=== PATIENT | male | born 1945 | race Caucasian/White ===

== ENCOUNTER 2018-12-07 13:32 | Emergency (ER) | payer MEDICARE, OTHER ==
[~2018-12-07] VITALS: Ht 157.5 cm; Wt 56.8 kg
[~2018-12-07 13:32] MED LIST: AMLO-147 PO; ASPI-535 PO; BENA40TA54 PO; FOLI-49 PO; METO100T PO; OMEP20CA16 PO; SIMV40TA3 PO; TRAV2.5D BOTH EYES
[2018-12-07 13:39] VITALS: Ht 157.5 cm; Wt 56.8 kg
--- NOTE | 2018-12-07 14:00 | ERD ---
ER Documentation Chief Complaint Chief Complaint swelling/mass on R. leg x 1 year redness/pain x3 days HPI This is a 73-year-old male who is had a right lateral upper tib-fib mass for 2 years, the patient then developed a great deal more swelling which is the size of a cantaloupe now, there is now some reddish purple discoloration to the skin for the past week. The patient does not want it removed after many surgeons have seen this and wanted to remove it in the past he says he is here because he is getting so big is getting hard to walk ROS All systems reviewed and are negative except as per history of present illness. Medications Home Meds Reported Medications Omeprazole* (Omeprazole*) 20 Mg Capsule.dr, 20 MG PO DAILY, #30 CAP 12/07/18 Calcium Acetate* (Calcium Acetate*) 667 Mg Capsule, 667 MG PO WITH MEALS, #30 CAP 12/07/18 Levetiracetam* (Levetiracetam*) 500 Mg Tablet, 500 MG PO DAILY, TAB 12/07/18 Lamotrigine* (Lamotrigine*) 100 Mg Tablet, 100 MG PO BID, TAB 12/07/18 Metoprolol Succinate* (Toprol XL*) 100 Mg Tab.sr.24h, 100 MG PO DAILY, #30 TAB 12/07/18 Simvastatin* (Zocor*) 20 Mg Tablet, 20 MG PO QHS, #30 TAB 12/07/18 Nifedipine* (Afeditab CR*) 60 Mg Tablet.er, 60 MG PO BID, #30 TAB.SA 12/07/18 Hydralazine Hcl* (Hydralazine Hcl*) 100 Mg Tablet, 100 MG PO Q8 PRN for NEEDED, #90 TAB 12/07/18 Discontinued Reported Medications Travoprost* (Travatan Z*) 2.5 Ml Drops, 1 DROP BOTH EYES HS, EA 04/02/15 Omeprazole* (Omeprazole*) 20 Mg Capsule.dr, 20 MG PO DAILY, CAP 04/02/15 Aspirin Ec (Aspir 81) 81 Mg Tablet.dr, 81 MG PO DAILY 10/18/13 Metoprolol (Lopressor) 100 Mg Tablet, 100 MG PO DAILY 10/18/13 Amlodipine Besylate* (Amlodipine Besylate*) 10 Mg Tablet, 10 MG PO DAILY 10/18/13 Simvastatin (Simvastatin) 40 Mg Tablet, 40 MG PO DAILY 10/18/13 Folic Acid* (Folic Acid*) 1 Mg Tablet, 1 MG PO DAILY 10/18/13 Benazepril Hcl* (Lotensin*) 40 Mg Tablet, 40 MG PO DAILY 10/18/13 Allergies Allergies: Coded Allergies: No Known Allergy (Unverified , 12/07/18) PMhx/Soc History of Surgery: Yes (LT ARM SHUNT - 07/2013, RT ARM SHUNT- 01/2015 ,HERNIA REPAIR , EYE SX ) Anesthesia Reaction: No Hx Neurological Disorder: No Hx Respiratory Disorders: No Hx Cardiac Disorders: Yes (HTN, HIGH CHOLESTEROL ) Hx Psychiatric Problems: No Hx Miscellaneous Medical Probl: Yes (LEFT SECOND TOE AMPUTATION ) Hx Alcohol Use: Yes Hx Substance Use: No Hx Tobacco Use: No Smoking Status: Never smoker FmHx Family History: No coronary disease Physical Exam Vitals Vital Signs Date Temp Pulse Resp B/P (MAP) Pulse Ox O2 O2 Flow FiO2 Time Delivery Rate 12/07/18 98.0 75 18 134/56 98 13:39 (82) Physical Exam Const: No acute distress Head: Atraumatic Eyes: Normal Conjunctiva ENT: Normal External Ears, Nose and Mouth. Neck: Full range of motion. No meningismus. Resp: Clear to auscultation bilaterally Cardio: Regular rate and rhythm, no murmurs Abd: Soft, non tender, non distended. Normal bowel sounds Skin: No petechiae or rashes Back: No midline or flank tenderness Ext: No cyanosis, or edema, the right upper tib-fib has a very large cantaloupe sized ballotable mass with another smaller tennis ball size mass top of the tibia, fluctuant Neur: Awake and alert Psych: Normal Mood and Affect Results 24 hrs Current Medications Medications Dose Sig/Erica Start Time Status Last (Trade) Ordered Route PRN Stop Time Admin Dose Reason Admin Lidocaine 20 ml ONCE ONCE 12/07/18 DC (Xylocaine SC 16:00 1% (Mdv) 20 12/07/18 16:01 ml) Procedures/MDM MR #: [id number] DOS: 12/07/18 1353 Ordering MD: CHERRY TORRES DO Location: E/R Room/Bed: PROCEDURE: CT lower extremity without contrast. CLINICAL INDICATION: Mass TECHNIQUE: CT scan of the right leg including the knee and proximal tibia was performed on a multi -slice scanner. No IV contrast was administered. Coronal and sagittal reformatted images were obtained from the axial source images. The total exam DLP equals 184.81 mGy-cm. The CDTI volume was 6.76 mGy. One or more of the following dose reduction techniques were used: - Automated exposure control. - Adjustment of the mA and/or kV according to patient size . - Use of iterative reconstruction technique. Images were reviewed on a high-resolution PACS workstation. Dicom images are available. COMPARISON: CT 10/19/2013 FINDINGS: Hypodense, multiloculated, complex cystic appearing mass at the lateral aspect of the knee and proximal lower leg measuring approximately 12.2 x 8.5 x 10.5 cm (series 2 image 47). This mass was present on CT angio from 10/19/2013, however appears to have an size since that exam. Majority of the mass demonstrates mild hypo attenuation (approximately 27 HU) with areas of peripheral nodular iso to hyperattenuating nodular areas (series 2 image 37). There also appears to be a capsule or peripheral rim. Mass probably involves the superficial soft tissues without evidence of osseous invasion or extension into the intra-articular joint space. No acute fracture or evidence of osteomyelitis. No osseous lesions detected. Small joint effusion at the knee. Severe calcified arterial atherosclerosis. IMPRESSION: Indeterminate, multiloculated cystic appearing mass with areas of peripheral nodularity or hemorrhage involving the soft tissues at the anterolateral aspect of the leg. This mass was present on CT from 10/19/2013, however has increased in size since that exam. Consider MRI with and without contrast for further evaluation. There is no evidence of osseous or intra-articular invasion. Small joint effusion at the knee. RPTAT:AAJJ Physician Yessy Date Time Electronically viewed and signed by Physician Yessy on 12/07/2018 15:30 RF/ CC: CHERRY TORRES DO [id number] Abscess Incision and Drainage with irrigation by me: Location: Right leg Anesthesia: Local 1% Lidocaine Technique: Irrigated. Disrupted loculations w/ instrumentation Packing: None Complications: Neurovascularly intact post procedure Copious amount of bloody discharge ED 48 hour wound check. Scar minimization instructions given. Abscess Incision and Drainage with irrigation by me: Location: r leg Anesthesia: Local 1% Lidocaine Technique: Irrigated. Disrupted loculations w/ instrumentation Packing: None Complications: Neurovascularly intact post procedure small amount of bloody DC 48 hour wound check. Scar minimization instructions given. will wrap, dc w abx Departure Diagnosis: Primary Impression: Mass of lower leg Laterality: right Qualified Codes: R22.41 - Localized swelling, mass and lump, right lower limb Condition: Stable CHERRY TORRES DO Dec 07, 2018 14:00
[2018-12-07] MEDS ORDERED: HYDR100T25 PO (15:19)
[2018-12-07] MEDS ORDERED: NIFE60TA24 PO (15:19)
[2018-12-07] MEDS ORDERED: SIMV20TA PO (15:20)
[2018-12-07] MEDS ORDERED: METO-336 PO (15:20)
[2018-12-07] MEDS ORDERED: LAMO100T PO (15:21)
[2018-12-07] MEDS ORDERED: LEVE500T8 PO (15:21)
[2018-12-07] MEDS ORDERED: CALC667C PO (15:22)
[2018-12-07] MEDS ORDERED: OMEP20CA16 PO (15:22)
[2018-12-07] MEDS ORDERED: LIDOCAINE 1% (MDV) 20 ML INJ SC ONE (16:00)
[2018-12-07] MEDS ORDERED: CEPH-443 PO (18:20)
[2018-12-07] MEDS ORDERED: HYDR-4011 PO (18:20)
[2018-12-07 18:41] VITALS: BP 140/65; PULSE 75; RESP 19
== END 2018-12-07 18:43 | disposition home or self-care (01) ==
LOC: E/R 13:32
DX: R22.41 Localized swelling, mass and lump, right lower limb (principal)
CPT/HCPCS: 73700

== ENCOUNTER 2019-01-11 20:10 | Inpatient (IN) | payer MEDICARE, OTHER ==
[~2019-01-11] VITALS: Ht 157.5 cm; Wt 52.7 kg
[~2019-01-11 20:10] MED LIST changes: -AMLO-147 PO; -ASPI-535 PO; -BENA40TA54 PO; +CALC667C PO; +CEPH-443 PO; -FOLI-49 PO; +HYDR-4011 PO; +HYDR100T25 PO; +LAMO100T PO; +LEVE500T8 PO; +METO-336 PO; -METO100T PO; +NIFE60TA24 PO; +SIMV20TA PO; -SIMV40TA3 PO; -TRAV2.5D BOTH EYES
--- NOTE | 2019-01-11 20:44 | ERD ---
ER Documentation Chief Complaint Chief Complaint ALOC, S/P FALL YESTERDAY; HX OF DIALYSIS, DM, HTN HPI The patient is a 73-year-old male, presenting to the ER because he became confused around 10 AM today, he fell yesterday hitting his head on the wall did not go to the hospital. He complains of occipital headache, denies syncope, near syncope, chest pain, dyspnea, abdominal pain, vomiting, dysuria, diarrhea. He does not smoke or drink Medical history: Chronic kidney disease on hemodialysis Thursday/Thursday/Thursday, diabetes mellitus, hypertension, epilepsy, dyslipidemia Past surgical history: Right upper proximity AV fistula, eye surgery, left second toe amputation, abdominal surgery but the details unclear ROS All systems reviewed and are negative except as per history of present illness. Medications Home Meds Active Scripts Cephalexin* (Keflex*) 500 Mg Capsule, 500 MG PO QID for 5 Days, CAP Prov:CHERRY TORRES DO 12/07/18 Hydrocodone/Acetaminophen ([place] 5-325 Tablet) 1 Each Tablet, 1 TAB PO Q6H PRN for PAIN, #15 TAB Prov:CHERRY TORRES DO 12/07/18 Reported Medications Omeprazole* (Omeprazole*) 20 Mg Capsule.dr, 20 MG PO DAILY, #30 CAP 12/07/18 Calcium Acetate* (Calcium Acetate*) 667 Mg Capsule, 667 MG PO WITH MEALS, #30 CAP 12/07/18 Levetiracetam* (Levetiracetam*) 500 Mg Tablet, 500 MG PO DAILY, TAB 12/07/18 Lamotrigine* (Lamotrigine*) 100 Mg Tablet, 100 MG PO BID, TAB 12/07/18 Metoprolol Succinate* (Toprol XL*) 100 Mg Tab.sr.24h, 100 MG PO DAILY, #30 TAB 12/07/18 Simvastatin* (Zocor*) 20 Mg Tablet, 20 MG PO QHS, #30 TAB 12/07/18 Nifedipine* (Afeditab CR*) 60 Mg Tablet.er, 60 MG PO BID, #30 TAB.SA 12/07/18 Hydralazine Hcl* (Hydralazine Hcl*) 100 Mg Tablet, 100 MG PO Q8 PRN for NEEDED, #90 TAB 12/07/18 Allergies Allergies: Coded Allergies: No Known Allergy (Unverified , 12/07/18) PMhx/Soc History of Surgery: Yes (LT ARM SHUNT - 07/2013, RT ARM SHUNT- 01/2015 ,HERNIA REPAIR , EYE SX ) Anesthesia Reaction: No Hx Neurological Disorder: No Hx Respiratory Disorders: No Hx Cardiac Disorders: Yes (HTN, HIGH CHOLESTEROL ) Hx Psychiatric Problems: No Hx Miscellaneous Medical Probl: Yes (LEFT SECOND TOE AMPUTATION ) Hx Alcohol Use: Yes Hx Substance Use: No Hx Tobacco Use: No Physical Exam Vitals Vital Signs Date Temp Pulse Resp B/P (MAP) Pulse Ox O2 O2 Flow FiO2 Time Delivery Rate 01/11/19 98.4 88 18 167/57 94 Nasal 3.0 22:30 (93) Cannula 01/11/19 Nasal 2 21:44 Cannula 01/11/19 98.4 85 19 161/75 95 20:19 (103) Physical Exam Const: No acute distress. Head: Atraumatic. Eyes: Normal Conjunctiva. ENT: Normal External Ears, Nose and Mouth. Neck: Full range of motion. No meningismus. Resp: Clear to auscultation bilaterally. Cardio: Regular rate and rhythm. Abd: Soft, non distended, normal bowel sounds, non tender. Skin: No petechiae or rashes. Back: No midline or flank tenderness. Ext: No cyanosis, or edema. Neur: Awake and alert. No focal deficit. Limited exam due to his condition Psych: Limited due to his condition Result Diagram: 01/11/19213301/11/192133 Results 24 hrs Laboratory Tests Test 01/11/19 21:18 01/11/19 21:34 01/11/19 21:35 Bedside Glucose 96 mg/dL White Blood Count 6.8 10^3/ul Red Blood Count 3.56 10^6/ul Hemoglobin 11.1 g/dl Hematocrit 34.0 % Mean Corpuscular Volume 95.5 fl Mean Corpuscular Hemoglobin 31.2 pg Mean Corpuscular 32.6 g/dl Hemoglobin Concent Red Cell Distribution Width 13.7 % Platelet Count 196 10^3/UL Mean Platelet Volume 10.9 fl Immature Granulocytes % 0.400 % Neutrophils % 77.4 % Lymphocytes % 13.8 % Monocytes % 7.1 % Eosinophils % 0.7 % Basophils % 0.6 % Nucleated Red Blood Cells % 0.0 /100WBC Immature Granulocytes # 0.030 10^3/ul Neutrophils # 5.2 10^3/ul Lymphocytes # 0.9 10^3/ul Monocytes # 0.5 10^3/ul Eosinophils # 0.1 10^3/ul Basophils # 0.0 10^3/ul Nucleated Red Blood Cells # 0.0 10^3/ul Prothrombin Time 12.0 Sec Prothrombin Time Ratio 0.9 INR International Normalized Ratio 0.88 Activated Partial Thromboplast 34.4 Sec Time Sodium Level 136 mmol/L Potassium Level 5.1 mmol/L Chloride Level 91 mmol/L Carbon Dioxide Level 34 mmol/L Anion Gap 11 Blood Urea Nitrogen 66 mg/dl Creatinine 7.55 mg/dl Est Glomerular Filtrat Rate mL/min mL/min Glucose Level 95 mg/dl Calcium Level 9.0 mg/dl Total Bilirubin 0.4 mg/dl Direct Bilirubin 0.00 mg/dl Indirect Bilirubin 0.4 mg/dl Aspartate Amino Transf (AST/SGOT) 25 IU/L Alanine 21 IU/L Aminotransferase (ALT/SGPT) Alkaline Phosphatase 226 IU/L Troponin I 0.018 ng/ml Total Protein 7.5 g/dl Albumin 3.9 g/dl Globulin 3.60 g/dl Albumin/Globulin Ratio 1.08 POC Venous Lactate 0.6 mmol/L Procedures/[place] [id number] Radiology Main Line: [phone] DIAGNOSTIC IMAGING REPORT Patient: DANETTE BURROUGHS : 1945 Age: 73 Sex: M [id number] DOS: 01/11/192118 Ordering MD: SHAAN ROSARIO MD Location: E/R Room/Bed: PROCEDURE: CT Brain without contrast. CLINICAL INDICATION: Altered level of consciousness TECHNIQUE: A CT of the brain was performed on a SEC [employer] 64-slice CT scanner utilizing axial imaging from the skull base through the vertex without IV contrast. Multiplanar reformatted images were made. Images were reviewed on a PACS workstation. The CTDIvol is 39.3 mGy and the DLP is 634.23 mGycm. One or more the following dose reduction techniques were utilized: Automated exposure control, adjustment of mA/ or kV according to patient's size, or use of iterative reconstruction technique. DICOM images are available for review. COMPARISON: None FINDINGS: There is no intracranial hemorrhage, mass effect, or midline shift. ventricles and sulci are diffusely prominent with mild increased prominence of the ventricles over the sulci with some crowding of the sulci at the vertex. There is confluent hypoattenuation in the periventricular white matter. 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 There is cortical encephalomalacia of the right frontal lobe. A calcification is seen within the right temporal lobe without surrounding abnormality. There is good hernandez-white matter differentiation throughout the cerebral hemispheres. There is a hypodensity within the right parasagittal kirk. The cerebellum is unremarkable. Extensive calcifications of the cavernous and supraclinoid ICA segments as well as vertebral arteries are visualized. The visualized paranasal sinuses and osseous structures are grossly unremarkable. IMPRESSION: CT of the brain demonstrates there is generalized volume loss however the ventricles are out of proportion relative to the sulci with mild crowding at the top and would clinically correlate for possible normal pressure hydrocephalus. There are microvascular changes with an old right frontal encephalomalacia as well as an old left jewell radiata and right kirk lacunar infarcts. RPTAT:HAGL Physician Adam Date Time Electronically viewed and signed by Physician Adam on 01/11/2019 22:23 RL/ CC: SHAAN ROSARIO MD [id number] [place] [address] Radiology Main Line: [phone] DIAGNOSTIC IMAGING REPORT Patient: DANETTE BURROUGHS : 1945 Age: 73 Sex: M MR #: [id number] DOS: 01/11/192118 Ordering MD: SHAAN ROSARIO MD Location: E/R Room/Bed: PROCEDURE: CT Cervical Spine without contrast. CLINICAL INDICATION: Altered level of consciousness TECHNIQUE: A CT of the cervical spine was performed on a [employer] 64- slice CT scanner utilizing thin section axial images from the skull base through the thoracic inlet. Sagittal and coronal reformatted images were made. The CTDIvol is 22.23 mGy and the DLP is 5 23.57 mGycm. One or more the following dose reduction techniques were utilized: Automated exposure control, adjustment of the mA/ or kV according to patient's size, or use of iterative reconstruction technique. DICOM images are available for review. COMPARISON: No prior studies are available for comparison. FINDINGS: There is a normal lordosis of the cervical spine. No vertebral body subluxation is seen. No fracture is evident. Subchondral cyst is seen along the anterior dense. Minimally calcified pannus is seen posterior to the dens. This mildly narrows the central canal at the upper C2 level. C2-3: The disc is normal in height. No significant disk bulge or protrusion is evident. There is no central canal stenosis or foraminal narrowing. C3-4: The disc is normal in height. A 2 ml partially calcified disc osteophyte complex flattens the anterior cord results in a moderate central canal stenosis. There is mild bilateral neural foraminal narrowing. C4-5: The disc is normal in height. There is a 2 mm partially calcified disc osteophyte complex with ligamentum redundancy of facet arthropathy. Combination results in flattening of the cord and a moderate central canal stenosis with at least mild bilateral neural foraminal narrowing. C5-6: The disc is normal in height. There is a 2 mm calcified disc osteophyte complex with bilateral facet arthropathy. Combination results in a mild central canal and mild bilateral neural foraminal narrowing, greater on the right. C6-7: The disc is normal in height. No significant disk bulge or protrusion is evident. There is no central canal stenosis or foraminal narrowing. C7-T1: The disc is normal in height. No significant disk bulge or protrusion is evident. There is no central canal stenosis or foraminal narrowing. IMPRESSION: CT cervical spine demonstrates no acute injury. Multilevel degenerative changes are present resulting in moderate central canal stenosis at the C3-4, and C4-5 levels. There is bilateral neural foraminal narrowing at each of these levels. At C5-6 there is mild central canal and bilateral neural foraminal narrowing. RPTAT:HAGL Physician Adam Date Time Electronically viewed and signed by Physician Adam on 01/11/2019 22:26 RL/ CC: SHAAN ROSARIO MD [id number] [place] [address] Radiology Main Line: [phone] DIAGNOSTIC IMAGING REPORT Patient: DANETTE BURROUGHS : 1945 Age: 73 Sex: M MR #: [id number] DOS: 01/11/192118 Ordering MD: SHAAN ROSARIO MD Location: E/R Room/Bed: PROCEDURE: XR chest. CLINICAL INDICATION: Sepsis TECHNIQUE: Portable AP view of the chest was obtained. COMPARISON: CR CHEST 04/02/2015; CR CHEST 10/17/2013 FINDINGS: Heart size is normal. Aorta is atherosclerotic. There is no pneumothorax or left pleural effusion. There is a small right pleural effusion. There are mild bibasilar airspace opacities. IMPRESSION: 1. Mild bibasilar infiltrates and/or atelectasis. 2. Small right pleural effusion. 3. Aortic atherosclerosis. RPTAT:HAJM Physician Rachael Date Time Electronically viewed and signed by Physician Rachael on 01/11/2019 22:10 RM/ CC: SHAAN ROSARIO MD [id number] EKG: Read by emergency physician Rate/Rhythm: Normal Sinus Rhythm 87 beats/min QRS, ST, T-waves: No ST elevation, no T inversion, PVC Impression: ABnormal EKG MEDICAL MAKING DECISION: The patient is a 73-year-old male, presenting with acute encephalopathy of unclear etiology, questionable normal pressure hydrocephalus The differential diagnoses considered include but are not limited to delirium, dementia, infection, electrolyte imbalance, metabolic encephalopathy, normal pressure hydrocephalus, TIA, epilepsy Consultation: I discussed the patient with the neurosurgeon Dr. Daigle, who was made aware of the patient the CT scan finding and he accepted the consult Departure Diagnosis: Primary Impression: Encephalopathy acute Additional Impressions: Pleural effusion Anemia SHAAN ROSARIO MD January 11, 2019 20:44
[2019-01-12] VITALS (8 sets, daily range): BP systolic 136–160; BP diastolic 65–86; PULSE 78–107; RESP 16–18; Ht 157.5 cm; Wt 52.7 kg
[2019-01-12] MEDS ORDERED: MECL-77 PO (00:19)
[2019-01-12] MEDS ORDERED: HYDROCODONE/APAP (5/325) TAB PO PRN (01:00)
[2019-01-12] MEDS ORDERED: NACL 0.9% 3 ML SYG IV SCH (01:00)
[2019-01-12] MEDS ORDERED: ONDANSETRON 4 MG INJ IV PRN (01:00)
[2019-01-12] MEDS ORDERED: ACETAMINOPHEN 325 MG TAB PO PRN (01:00)
[2019-01-12] MEDS ORDERED: MECLIZINE 25 MG TAB PO PRN (01:00)
[2019-01-12] MEDS ORDERED: ALBUTEROL/IPRATROPIUM (NEB) 3 ML AMP HHN PRN (01:00)
[2019-01-12] MEDS: PANTOPRAZOLE (EC) 40 MG TAB PO SCH (07:16)
--- NOTE | 2019-01-12 08:54 | HP ---
Date/Time of Note Date/Time of Note DATE: 01/12/19 TIME: 08:47 Assessment/Plan VTE Prophylaxis Pharmacological prophylaxis: other Lines/Catheters IV Catheter Type (from Nrs): Saline Lock Assessment/Plan Assessment/Plan ESRD on HD, hypertension, dyslipidemia, seizure, CVA 1. Altered mentation: -Patient fell down twice over the past 2 days hitting his head. -Head CT without acute findings -We will obtain additional imaging -Neurosurgery was consulted by ER for possible NPH 2. ESRD on HD: (MWF) - consult nephrology name 3. Hypertension: Continue home meds. Adjust as needed 4. Dyslipidemia: Continue statin 5. History of seizure: Per daughter he only had a seizure once and it was 2 years ago -Continue his meds for now 6. Anemia: Likely anemia of chronic disease/renal failure Result Diagram: 01/12/1952001/12/19 0521 Results 24hrs Laboratory Tests Test 01/11/19 21:18 01/11/19 21:34 01/11/19 21:35 01/11/19 23:57 Bedside Glucose 96 White Blood Count 6.8 Red Blood Count 3.56 L Hemoglobin 11.1 L Hematocrit 34.0 L Mean Corpuscular 95.5 Volume Mean Corpuscular 31.2 Hemoglobin Mean Corpuscular 32.6 Hemoglobin Concent Red Cell 13.7 Distribution Width Platelet Count 196 Mean Platelet Volume 10.9 #H Immature 0.400 Granulocytes % Neutrophils % 77.4 H Lymphocytes % 13.8 L Monocytes % 7.1 Eosinophils % 0.7 Basophils % 0.6 Nucleated Red Blood 0.0 Cells % Immature 0.030 Granulocytes # Neutrophils # 5.2 Lymphocytes # 0.9 Monocytes # 0.5 Eosinophils # 0.1 Basophils # 0.0 Nucleated Red Blood 0.0 Cells # Prothrombin Time 12.0 Prothrombin Time 0.9 Ratio INR International 0.88 Normalized Ratio Activated 34.4 Partial Thromboplast Time Sodium Level 136 Potassium Level 5.1 Chloride Level 91 L Carbon Dioxide Level 34 H Anion Gap 11 Blood Urea Nitrogen 66 H Creatinine 7.55 H Est Glomerular Filtrat Rate mL/min Glucose Level 95 Calcium Level 9.0 Total Bilirubin 0.4 Direct Bilirubin 0.00 Indirect Bilirubin 0.4 Aspartate Amino 25 Transf (AST/SGOT) Alanine 21 Aminotransferase (AL T/SGPT) Alkaline Phosphatase 226 H Troponin I 0.018 Total Protein 7.5 Albumin 3.9 Globulin 3.60 H Albumin/Globulin 1.08 Ratio POC Venous Lactate 0.6 Lactic Acid Level < 0.5 L Test 01/12/19 02:30 01/12/19 05:21 Lactic Acid Level 0.6 White Blood Count 4.3 #L Red Blood Count 2.96 L Hemoglobin 9.5 L Hematocrit 28.4 L Mean Corpuscular 95.9 Volume Mean Corpuscular 32.1 Hemoglobin Mean Corpuscular 33.5 Hemoglobin Concent Red Cell 13.7 Distribution Width Platelet Count 167 Mean Platelet Volume 11.2 H Immature 0.200 Granulocytes % Neutrophils % 67.7 Lymphocytes % 20.3 Monocytes % 9.3 Eosinophils % 1.6 Basophils % 0.9 Nucleated Red Blood 0.0 Cells % Immature 0.010 Granulocytes # Neutrophils # 2.9 Lymphocytes # 0.9 Monocytes # 0.4 Eosinophils # 0.1 Basophils # 0.0 Nucleated Red Blood 0.0 Cells # Sodium Level 136 Potassium Level 4.8 Chloride Level 92 L Carbon Dioxide Level 34 H Anion Gap 10 Blood Urea Nitrogen 77 H Creatinine 8.29 H Est Glomerular Filtrat Rate mL/min Glucose Level 72 Hemoglobin A1c 4.7 Calcium Level 8.9 Magnesium Level 2.0 Total Bilirubin 0.2 Direct Bilirubin 0.00 Indirect Bilirubin 0.2 Aspartate Amino 19 Transf (AST/SGOT) Alanine 17 Aminotransferase (AL T/SGPT) Alkaline Phosphatase 154 H Total Protein 6.1 # Albumin 3.2 L Globulin 2.90 Albumin/Globulin 1.10 Ratio Triglycerides Level 106 Cholesterol Level 117 LDL Cholesterol, 48 Calculated HDL Cholesterol 48 Cholesterol/HDL 2.4 Ratio Thyroid Stimulating 0.441 L Hormone (TSH) HPI/ROS Admit Date/Time Admit Date/Time January 11, 2019 at 23:04 Hx of Present Illness This is a 73-year-old male with a history of ESRD on HD, hypertension, dyslipidemia, seizure, CVA who was brought to the ER for altered mentation. I nformation is mainly gathered from his daughter Hortencia. According to her, he fell down a couple of days ago hitting his head. Yesterday he fell down again. When he woke up from sleep, his daughter said that he was confused. He was asking who she was and where he was. No seizure-like activity or focal weakness was noted. She said he only had a seizure once and it was 2 years ago. When presented to the ER, blood pressure was 161/75. Blood glucose in the 90s. Head CT shows the following. -CT of the brain demonstrates there is generalized volume loss however the ventricles are out of proportion relative to the sulci with mild crowding at the top and would clinically correlate for possible normal pressure hydrocephalus. -There are microvascular changes with an old right frontal encephalomalacia as well as an old left jewell radiata and right kirk lacunar infarcts. PMH/Family/Social Past Medical History Past Medical History Medical History: other (See HPI) Past Surgical History Past Surgical Hx: other (See HPI) Family History Significant Family History: no pertinent family hx Social History Alcohol Use: none Smoking Status: Never smoker Drug Use: none Exam Constitutional: alert, oriented, well developed Head: normocephalic, atraumatic Eyes: EOMI, PERRL Respiratory: clear to auscultation, normal air movement Cardiovascular: regular rate and rhythm, nl pulses Gastrointestinal: soft, non-tender Extremities: normal pulses Medications Current Medications IV Flush (NS 3 ml) 3 ml PER PROTOCOL IV ; Start 01/12/19 at 01:00 Ondansetron HCl (Zofran Inj) 4 mg Q6H PRN IV NAUSEA/VOMITING; Start 01/12/19 at 01:00 Acetaminophen (Tylenol Tab) 650 mg Q6H PRN PO .PAIN 1-3 OR TEMP; Start 01/12/19 at 01:00 Acetaminophen/ Hydrocodone Bitart ([place] (5/325)) 1 tab Q6H PRN PO .PAIN 4-6; Start 01/12/19 at 01:00 Albuterol/ Ipratropium (Duoneb) 3 ml Q2H RESP THERAPY PRN HHN SHORTNESS OF BREATH; Start 01/12/19 at 01:00 Hydralazine HCl (Apresoline) 100 mg Q8 PRN PO NEEDED; Start 01/12/19 at 01:00 Lamotrigine (Lamictal) 100 mg BID PO ; Start 01/12/19 at 09:00 Levetiracetam (Keppra) 500 mg DAILY PO ; Start 01/12/19 at 09:00 Meclizine HCl (Antivert) 25 mg TID PRN PO DIZZINESS; Start 01/12/19 at 01:00 Metoprolol Succinate (Toprol Xl) 100 mg DAILY PO ; Start 01/12/19 at 09:00 Nifedipine (Procardia Xl) 60 mg BID PO ; Start 01/12/19 at 09:00 Atorvastatin Calcium (Lipitor) 10 mg DAILY@21 PO ; Start 01/12/19 at 21:00 Pantoprazole (Protonix Tab) 40 mg DAILY@06 PO Last administered on 01/12/19at 07:16; Admin Dose 40 MG; Start 01/12/19 at 06:00 Coded Allergies: No Known Allergy (Unverified , 01/12/19) Social History Smoking Status: Former smoker Exam/Review of Systems Vital Signs Vitals Vital Signs Date Temp Pulse Resp B/P (MAP) Pulse Ox O2 O2 Flow FiO2 Time Delivery Rate 01/12/19 98.0 94 18 160/86 94 Nasal 08:13 (110) Cannula 01/12/19 3.0 07:53 CARLTON BENNETT MD January 12, 2019 08:54
[2019-01-12] MEDS ORDERED: NON-FORMULARY/PATIENT OWN MED (Omeprazole* 20 MG) PO SCH (09:00)
[2019-01-12] MEDS: METOPROLOL (XL) 100 MG TAB PO SCH (09:57)
[2019-01-12] MEDS: LEVETIRACETAM 500 MG TAB PO SCH (09:57)
[2019-01-12] MEDS: NIFEdipine (XL) 60 MG TAB PO SCH ×2 (09:58→20:49)
[2019-01-12] MEDS: LAMOTRIGINE 100 MG TAB PO SCH ×2 (09:58→20:48)
--- NOTE | 2019-01-12 11:52 | PN ---
Date/Time of Note Date/Time of Note DATE: 01/12/19 TIME: 11:47 Assessment/Plan VTE Prophylaxis SCD contraindicated: low risk/ambulating Pharmacological prophylaxis: NA/contraindicated Pharm contraindication: surgical contra Lines/Catheters IV Catheter Type (from Nrs): Saline Lock Assessment/Plan Hospital Course A/P 1. Acute encephalopathy ukn etiology stable, Rule out symptomatic NPH. 2. ESRD dialysis status 3. Anemia. 4. Old stroke by imaging 5. Chronic hypertension 6. Chronic dyslipidemia 7. Seizure disorder MR 8. Past tobacco 9. Cervical stenosis 10. Subclinical hyperthyroidism? S: oriented to month, [place]. No inez headache. Gait dysfunction? uses a fww? O: vss PE no pallor/ droop reg s1s2 no mrg ctab bs+ ntnd no r r g no edema CN II XII grossly intact M 12/26 *4 Sensory/ Reflexes- Symmetrical Result Diagram: 01/12/19 0501/12/19 0521 Results 24hrs Laboratory Tests Test 01/11/19 21:18 01/11/19 21:34 01/11/19 21:35 01/11/19 23:57 Bedside Glucose 96 White Blood Count 6.8 Red Blood Count 3.56 L Hemoglobin 11.1 L Hematocrit 34.0 L Mean Corpuscular 95.5 Volume Mean Corpuscular 31.2 Hemoglobin Mean Corpuscular 32.6 Hemoglobin Concent Red Cell 13.7 Distribution Width Platelet Count 196 Mean Platelet Volume 10.9 #H Immature 0.400 Granulocytes % Neutrophils % 77.4 H Lymphocytes % 13.8 L Monocytes % 7.1 Eosinophils % 0.7 Basophils % 0.6 Nucleated Red Blood 0.0 Cells % Immature 0.030 Granulocytes # Neutrophils # 5.2 Lymphocytes # 0.9 Monocytes # 0.5 Eosinophils # 0.1 Basophils # 0.0 Nucleated Red Blood 0.0 Cells # Prothrombin Time 12.0 Prothrombin Time 0.9 Ratio INR International 0.88 Normalized Ratio Activated 34.4 Partial Thromboplast Time Sodium Level 136 Potassium Level 5.1 Chloride Level 91 L Carbon Dioxide Level 34 H Anion Gap 11 Blood Urea Nitrogen 66 H Creatinine 7.55 H Est Glomerular Filtrat Rate mL/min Glucose Level 95 Calcium Level 9.0 Total Bilirubin 0.4 Direct Bilirubin 0.00 Indirect Bilirubin 0.4 Aspartate Amino 25 Transf (AST/SGOT) Alanine 21 Aminotransferase (AL T/SGPT) Alkaline Phosphatase 226 H Troponin I 0.018 Total Protein 7.5 Albumin 3.9 Globulin 3.60 H Albumin/Globulin 1.08 Ratio POC Venous Lactate 0.6 Lactic Acid Level < 0.5 L Test 01/12/19 02:30 01/12/19 05:21 Lactic Acid Level 0.6 White Blood Count 4.3 #L Red Blood Count 2.96 L Hemoglobin 9.5 L Hematocrit 28.4 L Mean Corpuscular 95.9 Volume Mean Corpuscular 32.1 Hemoglobin Mean Corpuscular 33.5 Hemoglobin Concent Red Cell 13.7 Distribution Width Platelet Count 167 Mean Platelet Volume 11.2 H Immature 0.200 Granulocytes % Neutrophils % 67.7 Lymphocytes % 20.3 Monocytes % 9.3 Eosinophils % 1.6 Basophils % 0.9 Nucleated Red Blood 0.0 Cells % Immature 0.010 Granulocytes # Neutrophils # 2.9 Lymphocytes # 0.9 Monocytes # 0.4 Eosinophils # 0.1 Basophils # 0.0 Nucleated Red Blood 0.0 Cells # Sodium Level 136 Potassium Level 4.8 Chloride Level 92 L Carbon Dioxide Level 34 H Anion Gap 10 Blood Urea Nitrogen 77 H Creatinine 8.29 H Est Glomerular Filtrat Rate mL/min Glucose Level 72 Hemoglobin A1c 4.7 Calcium Level 8.9 Magnesium Level 2.0 Total Bilirubin 0.2 Direct Bilirubin 0.00 Indirect Bilirubin 0.2 Aspartate Amino 19 Transf (AST/SGOT) Alanine 17 Aminotransferase (AL T/SGPT) Alkaline Phosphatase 154 H Total Protein 6.1 # Albumin 3.2 L Globulin 2.90 Albumin/Globulin 1.10 Ratio Triglycerides Level 106 Cholesterol Level 117 LDL Cholesterol, 48 Calculated HDL Cholesterol 48 Cholesterol/HDL 2.4 Ratio Thyroid Stimulating 0.441 L Hormone (TSH) Exam/Review of Systems Exam Vitals Vital Signs Date Temp Pulse Resp B/P (MAP) Pulse Ox O2 O2 Flow FiO2 Time Delivery Rate 01/12/19 98.0 88 18 155/65 96 Nasal 11:19 (95) Cannula 01/12/19 2.0 08:15 Results Results 24hrs Laboratory Tests Test 01/11/19 21:18 01/11/19 21:34 01/11/19 21:35 01/11/19 23:57 Bedside Glucose 96 White Blood Count 6.8 Red Blood Count 3.56 L Hemoglobin 11.1 L Hematocrit 34.0 L Mean Corpuscular 95.5 Volume Mean Corpuscular 31.2 Hemoglobin Mean Corpuscular 32.6 Hemoglobin Concent Red Cell 13.7 Distribution Width Platelet Count 196 Mean Platelet Volume 10.9 #H Immature 0.400 Granulocytes % Neutrophils % 77.4 H Lymphocytes % 13.8 L Monocytes % 7.1 Eosinophils % 0.7 Basophils % 0.6 Nucleated Red Blood 0.0 Cells % Immature 0.030 Granulocytes # Neutrophils # 5.2 Lymphocytes # 0.9 Monocytes # 0.5 Eosinophils # 0.1 Basophils # 0.0 Nucleated Red Blood 0.0 Cells # Prothrombin Time 12.0 Prothrombin Time 0.9 Ratio INR International 0.88 Normalized Ratio Activated 34.4 Partial Thromboplast Time Sodium Level 136 Potassium Level 5.1 Chloride Level 91 L Carbon Dioxide Level 34 H Anion Gap 11 Blood Urea Nitrogen 66 H Creatinine 7.55 H Est Glomerular Filtrat Rate mL/min Glucose Level 95 Calcium Level 9.0 Total Bilirubin 0.4 Direct Bilirubin 0.00 Indirect Bilirubin 0.4 Aspartate Amino 25 Transf (AST/SGOT) Alanine 21 Aminotransferase (AL T/SGPT) Alkaline Phosphatase 226 H Troponin I 0.018 Total Protein 7.5 Albumin 3.9 Globulin 3.60 H Albumin/Globulin 1.08 Ratio POC Venous Lactate 0.6 Lactic Acid Level < 0.5 L Test 01/12/19 02:30 01/12/19 05:21 Lactic Acid Level 0.6 White Blood Count 4.3 #L Red Blood Count 2.96 L Hemoglobin 9.5 L Hematocrit 28.4 L Mean Corpuscular 95.9 Volume Mean Corpuscular 32.1 Hemoglobin Mean Corpuscular 33.5 Hemoglobin Concent Red Cell 13.7 Distribution Width Platelet Count 167 Mean Platelet Volume 11.2 H Immature 0.200 Granulocytes % Neutrophils % 67.7 Lymphocytes % 20.3 Monocytes % 9.3 Eosinophils % 1.6 Basophils % 0.9 Nucleated Red Blood 0.0 Cells % Immature 0.010 Granulocytes # Neutrophils # 2.9 Lymphocytes # 0.9 Monocytes # 0.4 Eosinophils # 0.1 Basophils # 0.0 Nucleated Red Blood 0.0 Cells # Sodium Level 136 Potassium Level 4.8 Chloride Level 92 L Carbon Dioxide Level 34 H Anion Gap 10 Blood Urea Nitrogen 77 H Creatinine 8.29 H Est Glomerular Filtrat Rate mL/min Glucose Level 72 Hemoglobin A1c 4.7 Calcium Level 8.9 Magnesium Level 2.0 Total Bilirubin 0.2 Direct Bilirubin 0.00 Indirect Bilirubin 0.2 Aspartate Amino 19 Transf (AST/SGOT) Alanine 17 Aminotransferase (AL T/SGPT) Alkaline Phosphatase 154 H Total Protein 6.1 # Albumin 3.2 L Globulin 2.90 Albumin/Globulin 1.10 Ratio Triglycerides Level 106 Cholesterol Level 117 LDL Cholesterol, 48 Calculated HDL Cholesterol 48 Cholesterol/HDL 2.4 Ratio Thyroid Stimulating 0.441 L Hormone (TSH) Medications Medication Current Medications IV Flush (NS 3 ml) 3 ml PER PROTOCOL IV ; Start 01/12/19 at 01:00 Ondansetron HCl (Zofran Inj) 4 mg Q6H PRN IV NAUSEA/VOMITING; Start 01/12/19 at 01:00 Acetaminophen (Tylenol Tab) 650 mg Q6H PRN PO .PAIN 1-3 OR TEMP; Start 01/12/19 at 01:00 Acetaminophen/ Hydrocodone Bitart ([place] (5/325)) 1 tab Q6H PRN PO .PAIN 4-6; Start 01/12/19 at 01:00 Albuterol/ Ipratropium (Duoneb) 3 ml Q2H RESP THERAPY PRN HHN SHORTNESS OF BREATH; Start 01/12/19 at 01:00 Hydralazine HCl (Apresoline) 100 mg Q8 PRN PO NEEDED; Start 01/12/19 at 01:00 Lamotrigine (Lamictal) 100 mg BID PO Last administered on 01/12/19at 09:58; Admin Dose 100 MG; Start 01/12/19 at 09:00 Levetiracetam (Keppra) 500 mg DAILY PO Last administered on 01/12/19at 09:57; Admin Dose 500 MG; Start 01/12/19 at 09:00 Meclizine HCl (Antivert) 25 mg TID PRN PO DIZZINESS; Start 01/12/19 at 01:00 Metoprolol Succinate (Toprol Xl) 100 mg DAILY PO Last administered on 01/12/19at 09:57; Admin Dose 100 MG; Start 01/12/19 at 09:00 Nifedipine (Procardia Xl) 60 mg BID PO Last administered on 01/12/19at 09:58; Admin Dose 60 MG; Start 01/12/19 at 09:00 Atorvastatin Calcium (Lipitor) 10 mg DAILY@21 PO ; Start 01/12/19 at 21:00 Pantoprazole (Protonix Tab) 40 mg DAILY@06 PO Last administered on 01/12/19at 07:16; Admin Dose 40 MG; Start 01/12/19 at 06:00 TYSHAWN BYRD MD January 12, 2019 11:52
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
--- NOTE | 2019-01-12 19:21 | CONS ---
Assessment/Plan Assessment/Plan Assessment/Plan (Daily) 1. Altered mental status 2. ESRD on HD MWF 3. H/O HTN 4. H/o dyslipidemia 5. H/o seizure disorder 6. H/o CVA Plan: Seen in Tele floor BP stable, Plan for HD tomorrow Thanks for consultation, we will continue to follow up Consultation Date/Type/Reason Admit Date/Time January 11, 2019 at 23:04 Date of Consultation: January 12, 2019 Type of Consult NEPHROLOGY Reason for Consultation ESRD on HD Requesting Provider: TYSHAWN BYRD MD Date/Time of Note DATE: 01/12/19 TIME: 19:21 Hx of Present Illness 73-year-old male with a history of ESRD on HD, hypertension, dyslipidemia, seizure, CVA who was brought to the ER for altered mentation. pt had a two fall episode yesterday hitting his head- No seizure-like activity or focal weakness was noted. in ED blood pressure was 161/75. Blood glucose in the 90s. Head CT shows the following. -CT of the brain demonstrates there is generalized volume loss however the ventricles are out of proportion relative to the sulci with mild crowding at the top and would clinically correlate for possible normal pressure hydrocephalus. -There are microvascular changes with an old right frontal encephalomalacia as well as an old left jewell radiata and right kirk lacunar infarcts. Renal has been consulted for maintainace HD, pt regular schedule for HD is MWF and he follows at [facility] .Last hD done on Thursday but it was incomplete as per family. Subjective hx not possible: other (unable to obtain ROS due to AMS ) Past Medical History Medical History: other (ESRD on HD, hypertension, dyslipidemia, seizure, CVA, ) Home Meds Active Scripts Hydrocodone/Acetaminophen ([place] 5-325 Tablet) 1 Each Tablet, 1 TAB PO Q6H PRN for PAIN, #15 TAB Prov:CHERRY TORRES DO 12/07/18 Reported Medications Meclizine Hcl* (Meclizine Hcl*) 25 Mg Tablet, 25 MG PO TID PRN for DIZZINESS for 30 Days 01/12/19 Omeprazole* (Omeprazole*) 20 Mg Capsule.dr, 20 MG PO DAILY, #30 CAP 12/07/18 Calcium Acetate* (Calcium Acetate*) 667 Mg Capsule, 667 MG PO WITH MEALS, #30 CAP 12/07/18 Levetiracetam* (Levetiracetam*) 500 Mg Tablet, 500 MG PO DAILY, TAB 12/07/18 Lamotrigine* (Lamotrigine*) 100 Mg Tablet, 100 MG PO BID, TAB 12/07/18 Metoprolol Succinate* (Toprol XL*) 100 Mg Tab.sr.24h, 100 MG PO DAILY, #30 TAB 12/07/18 Simvastatin* (Zocor*) 20 Mg Tablet, 20 MG PO QHS, #30 TAB 12/07/18 Nifedipine* (Afeditab CR*) 60 Mg Tablet.er, 60 MG PO BID, #30 TAB.SA 12/07/18 Hydralazine Hcl* (Hydralazine Hcl*) 100 Mg Tablet, 100 MG PO Q8 PRN for NEEDED, #90 TAB 12/07/18 Discontinued Scripts Cephalexin* (Keflex*) 500 Mg Capsule, 500 MG PO QID for 5 Days, CAP Prov:CHERRY TORRES DO 12/07/18 Medications Current Medications IV Flush (NS 3 ml) 3 ml PER PROTOCOL IV ; Start 01/12/19 at 01:00 Ondansetron HCl (Zofran Inj) 4 mg Q6H PRN IV NAUSEA/VOMITING; Start 01/12/19 at 01:00 Acetaminophen (Tylenol Tab) 650 mg Q6H PRN PO .PAIN 1-3 OR TEMP; Start 01/12/19 at 01:00 Acetaminophen/ Hydrocodone Bitart ([place] (5/325)) 1 tab Q6H PRN PO .PAIN 4-6; Start 01/12/19 at 01:00 Albuterol/ Ipratropium (Duoneb) 3 ml Q2H RESP THERAPY PRN HHN SHORTNESS OF BREATH; Start 01/12/19 at 01:00 Hydralazine HCl (Apresoline) 100 mg Q8 PRN PO NEEDED; Start 01/12/19 at 01:00 Lamotrigine (Lamictal) 100 mg BID PO Last administered on 01/12/19at 09:58; Ad min Dose 100 MG; Start 01/12/19 at 09:00 Levetiracetam (Keppra) 500 mg DAILY PO Last administered on 01/12/19at 09:57; Admin Dose 500 MG; Start 01/12/19 at 09:00 Meclizine HCl (Antivert) 25 mg TID PRN PO DIZZINESS; Start 01/12/19 at 01:00 Metoprolol Succinate (Toprol Xl) 100 mg DAILY PO Last administered on 01/12/19at 09:57; Admin Dose 100 MG; Start 01/12/19 at 09:00 Nifedipine (Procardia Xl) 60 mg BID PO Last administered on 01/12/19at 09:58; Admin Dose 60 MG; Start 01/12/19 at 09:00 Atorvastatin Calcium (Lipitor) 10 mg DAILY@21 PO ; Start 01/12/19 at 21:00 Pantoprazole (Protonix Tab) 40 mg DAILY@06 PO Last administered on 01/12/19at 07:16; Admin Dose 40 MG; Start 01/12/19 at 06:00 Allergies: Coded Allergies: No Known Allergy (Unverified , 01/12/19) Past Surgical History Past Surgical Hx: other (AVF in place ) Family History Significant Family History: no pertinent family hx Social History Alcohol Use: none Smoking Status: Never smoker Drug Use: none Exam/Review of Systems Exam Vitals Vital Signs Date Temp Pulse Resp B/P (MAP) Pulse Ox O2 O2 Flow FiO2 Time Delivery Rate 01/12/19 78 16:29 01/12/19 98.2 16 152/75 98 Nasal 15:04 (100) Cannula 01/12/19 2.0 08:15 Constitutional: alert Psych: no complaints Head: normocephalic Neck: supple, non-tender Respiratory: congested cough, diminished breath sounds Cardiovascular: regular rate and rhythm, nl pulses Gastrointestinal: soft, non-tender Musculoskeletal: joint tenderness, muscle weakness, spine non-tender Neurological: other (uncooperative for full neuro exam ) Lymph: nl lymph nodes Results Result Diagram: 01/12/1952001/12/19 05 Results 24hrs Laboratory Tests Test 01/11/19 21:18 01/11/19 21:34 01/11/19 21:35 01/11/19 23:57 Bedside Glucose 96 White Blood Count 6.8 Red Blood Count 3.56 L Hemoglobin 11.1 L Hematocrit 34.0 L Mean Corpuscular 95.5 Volume Mean Corpuscular 31.2 Hemoglobin Mean Corpuscular 32.6 Hemoglobin Concent Red Cell 13.7 Distribution Width Platelet Count 196 Mean Platelet Volume 10.9 #H Immature 0.400 Granulocytes % Neutrophils % 77.4 H Lymphocytes % 13.8 L Monocytes % 7.1 Eosinophils % 0.7 Basophils % 0.6 Nucleated Red Blood 0.0 Cells % Immature 0.030 Granulocytes # Neutrophils # 5.2 Lymphocytes # 0.9 Monocytes # 0.5 Eosinophils # 0.1 Basophils # 0.0 Nucleated Red Blood 0.0 Cells # Prothrombin Time 12.0 Prothrombin Time 0.9 Ratio INR International 0.88 Normalized Ratio Activated 34.4 Partial Thromboplast Time Sodium Level 136 Potassium Level 5.1 Chloride Level 91 L Carbon Dioxide Level 34 H Anion Gap 11 Blood Urea Nitrogen 66 H Creatinine 7.55 H Est Glomerular Filtrat Rate mL/min Glucose Level 95 Calcium Level 9.0 Total Bilirubin 0.4 Direct Bilirubin 0.00 Indirect Bilirubin 0.4 Aspartate Amino 25 Transf (AST/SGOT) Alanine 21 Aminotransferase (AL T/SGPT) Alkaline Phosphatase 226 H Troponin I 0.018 Total Protein 7.5 Albumin 3.9 Globulin 3.60 H Albumin/Globulin 1.08 Ratio POC Venous Lactate 0.6 Lactic Acid Level < 0.5 L Test 01/12/19 02:30 01/12/19 05:21 Lactic Acid Level 0.6 White Blood Count 4.3 #L Red Blood Count 2.96 L Hemoglobin 9.5 L Hematocrit 28.4 L Mean Corpuscular 95.9 Volume Mean Corpuscular 32.1 Hemoglobin Mean Corpuscular 33.5 Hemoglobin Concent Red Cell 13.7 Distribution Width Platelet Count 167 Mean Platelet Volume 11.2 H Immature 0.200 Granulocytes % Neutrophils % 67.7 Lymphocytes % 20.3 Monocytes % 9.3 Eosinophils % 1.6 Basophils % 0.9 Nucleated Red Blood 0.0 Cells % Immature 0.010 Granulocytes # Neutrophils # 2.9 Lymphocytes # 0.9 Monocytes # 0.4 Eosinophils # 0.1 Basophils # 0.0 Nucleated Red Blood 0.0 Cells # Sodium Level 136 Potassium Level 4.8 Chloride Level 92 L Carbon Dioxide Level 34 H Anion Gap 10 Blood Urea Nitrogen 77 H Creatinine 8.29 H Est Glomerular Filtrat Rate mL/min Glucose Level 72 Hemoglobin A1c 4.7 Calcium Level 8.9 Magnesium Level 2.0 Total Bilirubin 0.2 Direct Bilirubin 0.00 Indirect Bilirubin 0.2 Aspartate Amino 19 Transf (AST/SGOT) Alanine 17 Aminotransferase (AL T/SGPT) Alkaline Phosphatase 154 H Total Protein 6.1 # Albumin 3.2 L Globulin 2.90 Albumin/Globulin 1.10 Ratio Triglycerides Level 106 Cholesterol Level 117 LDL Cholesterol, 48 Calculated HDL Cholesterol 48 Cholesterol/HDL 2.4 Ratio Thyroid Stimulating 0.441 L Hormone (TSH) Medications Medication Current Medications IV Flush (NS 3 ml) 3 ml PER PROTOCOL IV ; Start 01/12/19 at 01:00 Ondansetron HCl (Zofran Inj) 4 mg Q6H PRN IV NAUSEA/VOMITING; Start 01/12/19 at 01:00 Acetaminophen (Tylenol Tab) 650 mg Q6H PRN PO .PAIN 1-3 OR TEMP; Start 01/12/19 at 01:00 Acetaminophen/ Hydrocodone Bitart ([place] (5/325)) 1 tab Q6H PRN PO .PAIN 4-6; Start 01/12/19 at 01:00 Albuterol/ Ipratropium (Duoneb) 3 ml Q2H RESP THERAPY PRN HHN SHORTNESS OF BREATH; Start 01/12/19 at 01:00 Hydralazine HCl (Apresoline) 100 mg Q8 PRN PO NEEDED; Start 01/12/19 at 01:00 Lamotrigine (Lamictal) 100 mg BID PO Last administered on 01/12/19at 09:58; Admin Dose 100 MG; Start 01/12/19 at 09:00 Levetiracetam (Keppra) 500 mg DAILY PO Last administered on 01/12/19at 09:57; Admin Dose 500 MG; Start 01/12/19 at 09:00 Meclizine HCl (Antivert) 25 mg TID PRN PO DIZZINESS; Start 01/12/19 at 01:00 Metoprolol Succinate (Toprol Xl) 100 mg DAILY PO Last administered on 01/12/19at 09:57; Admin Dose 100 MG; Start 01/12/19 at 09:00 Nifedipine (Procardia Xl) 60 mg BID PO Last administered on 01/12/19at 09:58; Admin Dose 60 MG; Start 01/12/19 at 09:00 Atorvastatin Calcium (Lipitor) 10 mg DAILY@21 PO ; Start 01/12/19 at 21:00 Pantoprazole (Protonix Tab) 40 mg DAILY@06 PO Last administered on 01/12/19at 07:16; Admin Dose 40 MG; Start 01/12/19 at 06:00 SOLE NIETO MD January 12, 2019 19:21
[2019-01-12] MEDS ORDERED: SODIUM CHLORIDE 0.9% 1L BAG IV PRN (19:30)
[2019-01-12] MEDS ORDERED: ALBUMIN HUMAN 25% 100 ML IV PRN (19:30)
[2019-01-12] MEDS: ATORVASTATIN 10 MG TAB PO SCH (20:48)
[2019-01-12] MEDS ORDERED: NON-FORMULARY/PATIENT OWN MED (Simvastatin* (Zocor*) 20 MG) PO SCH (21:00)
[2019-01-13] VITALS (27 sets, daily range): BP systolic 136–191; BP diastolic 59–89; PULSE 63–113; RESP 16–19
[2019-01-13] MEDS: PANTOPRAZOLE (EC) 40 MG TAB PO SCH (06:20)
[2019-01-13] MEDS: NIFEdipine (XL) 60 MG TAB PO SCH ×3 (09:00→20:02)
[2019-01-13] MEDS: METOPROLOL (XL) 100 MG TAB PO SCH ×2 (09:00→12:04)
[2019-01-13] MEDS: LAMOTRIGINE 100 MG TAB PO SCH ×3 (09:00→20:02)
[2019-01-13] MEDS: LEVETIRACETAM 500 MG TAB PO SCH ×2 (09:00→12:03)
--- NOTE | 2019-01-13 14:02 | CONS ---
Assessment/Plan Assessment/Plan Assessment/Plan (Daily) 1. Altered mental status 2. ESRD on HD MWF 3. H/O HTN with accelerated HTN 4. H/o dyslipidemia 5. H/o seizure disorder 6. H/o CVA 7. Acute hyperkalemia Plan: Nifedipine XL 60mg PO BID, Hydralazine 100mg PO TID, IV hydralzine prn S/p Hd today 3 L removed, will plan for next HD on Thursday pt regular HD schedule is MWF- After HD on thursday pt will be back on his Regular schedule MWF Continue other medications will follow up Consultation Date/Type/Reason Admit Date/Time January 12, 2019 at 11:53 Initial Consult Date Date/Time of Note DATE: 01/13/19 TIME: 14:02 24 HR Interval Summary Free Text/Dictation K 5.6, BUN 104, S/p Hd today 3 L removed Exam/Review of Systems Exam Vitals Vital Signs Date Temp Pulse Resp B/P (MAP) Pulse Ox O2 O2 Flow FiO2 Time Delivery Rate 01/13/19 78 13:00 01/13/19 97.4 16 158/72 98 11:20 (100) 01/13/19 Nasal 2.0 08:22 Cannula Intake and Output 01/12/19 01/12/19 01/13/19 1515:00 23:00 07:00 IntakeIntake Total 580 ml 100 ml OutputOutput Total 0 ml BalanceBalance 580 ml 100 ml Exam Constitutional: alert, awake, no acute distress Respiratory: congested cough, diminished breath sounds Cardiovascular: regular rate and rhythm, nl pulses Gastrointestinal: soft, non-tender Musculoskeletal: no clubbing/cyanosis/edema Neurological: non focal Results Result Diagram: 01/13/1970401/13/19704 Results 24hrs Laboratory Tests Test 01/13/19 07:05 White Blood Count 5.8 # Red Blood Count 3.17 L Hemoglobin 10.0 L Hematocrit 30.0 L Mean Corpuscular Volume 94.6 Mean Corpuscular Hemoglobin 31.5 Mean Corpuscular Hemoglobin Concent 33.3 Red Cell Distribution Width 13.4 Platelet Count 182 Mean Platelet Volume 10.7 H Immature Granulocytes % 0.300 Neutrophils % 71.2 Lymphocytes % 17.6 Monocytes % 8.3 Eosinophils % 1.7 Basophils % 0.9 Nucleated Red Blood Cells % 0.0 Immature Granulocytes # 0.020 Neutrophils # 4.1 Lymphocytes # 1.0 Monocytes # 0.5 Eosinophils # 0.1 Basophils # 0.1 Nucleated Red Blood Cells # 0.0 Sodium Level 135 Potassium Level 5.6 H Chloride Level 92 L Carbon Dioxide Level 29 Anion Gap 14 H Blood Urea Nitrogen 104 H Creatinine 10.02 H Est Glomerular Filtrat Rate mL/min Glucose Level 93 Calcium Level 8.5 Phosphorus Level 6.1 H Magnesium Level 2.1 Vitamin B12 Level 276 Folate 6.4 Free Thyroxine 1.79 Total Triiodothyronine 0.64 L Hepatitis B Surface Antigen NEGATIVE Hepatitis B Surface Antibody POSITIVE H Medications Medication Current Medications IV Flush (NS 3 ml) 3 ml PER PROTOCOL IV ; Start 01/12/19 at 01:00 Ondansetron HCl (Zofran Inj) 4 mg Q6H PRN IV NAUSEA/VOMITING; Start 01/12/19 at 01:00 Acetaminophen (Tylenol Tab) 650 mg Q6H PRN PO .PAIN 1-3 OR TEMP; Start 01/12/19 at 01:00 Acetaminophen/ Hydrocodone Bitart ([place] (5/325)) 1 tab Q6H PRN PO .PAIN 4-6; Start 01/12/19 at 01:00 Albuterol/ Ipratropium (Duoneb) 3 ml Q2H RESP THERAPY PRN HHN SHORTNESS OF BREATH; Start 01/12/19 at 01:00 Hydralazine HCl (Apresoline) 100 mg Q8 PRN PO NEEDED; Start 01/12/19 at 01:0 0 Lamotrigine (Lamictal) 100 mg BID PO Last administered on 01/13/19at 12:03; Admin Dose 100 MG; Start 01/12/19 at 09:00 Levetiracetam (Keppra) 500 mg DAILY PO Last administered on 01/13/19at 12:03; A dmin Dose 500 MG; Start 01/12/19 at 09:00 Meclizine HCl (Antivert) 25 mg TID PRN PO DIZZINESS; Start 01/12/19 at 01:00 Metoprolol Succinate (Toprol Xl) 100 mg DAILY PO Last administered on 01/13/19at 12:04; Admin Dose 100 MG; Start 01/12/19 at 09:00 Nifedipine (Procardia Xl) 60 mg BID PO Last administered on 01/13/19at 12:03; Admin Dose 60 MG; Start 01/12/19 at 09:00 Atorvastatin Calcium (Lipitor) 10 mg DAILY@21 PO Last administered on 01/12/19at 20:48; Admin Dose 10 MG; Start 01/12/19 at 21:00 Pantoprazole (Protonix Tab) 40 mg DAILY@06 PO Last administered on 01/13/19at 06:20; Admin Dose 40 MG; Start 01/12/19 at 06:00 Albumin Human 100 ml @ 100 mls/hr WITH DIALYSIS PRN IV SBP <90 DURING DIALYSIS; Start 01/12/19 at 19:30 Sodium Chloride (NS) -To prime the dialy... DIRECTED FOR HD PRN IV HD; Start 01/12/19 at 19:30 SOLE NIETO MD January 13, 2019 14:02
[2019-01-13] MEDS: ATORVASTATIN 10 MG TAB PO SCH (20:02)
--- NOTE | 2019-01-13 23:18 | PN ---
Date/Time of Note Date/Time of Note DATE: 01/13/19 TIME: 23:17 Assessment/Plan VTE Prophylaxis Risk score (from Ns)>0 risk: 3 SCD applied (from Ns): Yes SCD contraindicated: low risk/ambulating Pharmacological prophylaxis: LMWH Lines/Catheters IV Catheter Type [facility]from [facility]): Saline Lock Assessment/Plan Hospital Course A/P 1. Acute encephalopathy ukn etiology stable, Ruled out symptomatic NPH. 2. ESRD dialysis status 3. Anemia. 4. Old stroke by imaging 5. Chronic hypertension 6. Chronic dyslipidemia 7. Seizure disorder MR 8. Past tobacco 9. Cervical stenosis 10. Subclinical hyperthyroidism? S: 01/12oriented to month, Resseda. No inez headache. Gait dysfunction? uses a fww? 01/13: no events O: vss PE no pallor/ droop reg s1s2 no mrg ctab bs+ ntnd no r r g no edema CN II XII grossly intact M 12/26 *4 Sensory/ Reflexes- Symmetrical Result Diagram: 01/13/19 0705 01/13/19 0705 Results 24hrs Laboratory Tests Test 01/13/19 07:05 White Blood Count 5.8 # Red Blood Count 3.17 L Hemoglobin 10.0 L Hematocrit 30.0 L Mean Corpuscular Volume 94.6 Mean Corpuscular Hemoglobin 31.5 Mean Corpuscular Hemoglobin Concent 33.3 Red Cell Distribution Width 13.4 Platelet Count 182 Mean Platelet Volume 10.7 H Immature Granulocytes % 0.300 Neutrophils % 71.2 Lymphocytes % 17.6 Monocytes % 8.3 Eosinophils % 1.7 Basophils % 0.9 Nucleated Red Blood Cells % 0.0 Immature Granulocytes # 0.020 Neutrophils # 4.1 Lymphocytes # 1.0 Monocytes # 0.5 Eosinophils # 0.1 Basophils # 0.1 Nucleated Red Blood Cells # 0.0 Sodium Level 135 Potassium Level 5.6 H Chloride Level 92 L Carbon Dioxide Level 29 Anion Gap 14 H Blood Urea Nitrogen 104 H Creatinine 10.02 H Est Glomerular Filtrat Rate mL/min Glucose Level 93 Calcium Level 8.5 Phosphorus Level 6.1 H Magnesium Level 2.1 Vitamin B12 Level 276 Folate 6.4 Free Thyroxine 1.79 Total Triiodothyronine 0.64 L Rapid Plasma Reagin NONREACTIVE Hepatitis B Surface Antigen NEGATIVE Hepatitis B Surface Antibody POSITIVE H Exam/Review of Systems Exam Vitals Vital Signs Date Temp Pulse Resp B/P (MAP) Pulse Ox O2 O2 Flow FiO2 Time Delivery Rate 01/13/19 Nasal 2.0 20:09 Cannula 01/13/19 81 20:00 01/13/19 98.0 19 177/89 98 20:00 (118) Intake and Output 01/12/19 01/12/19 01/13/19 1515:00 23:00 07:00 IntakeIntake Total 580 ml 100 ml OutputOutput Total 0 ml BalanceBalance 580 ml 100 ml Results Results 24hrs Laboratory Tests Test 01/13/19 07:05 White Blood Count 5.8 # Red Blood Count 3.17 L Hemoglobin 10.0 L Hematocrit 30.0 L Mean Corpuscular Volume 94.6 Mean Corpuscular Hemoglobin 31.5 Mean Corpuscular Hemoglobin Concent 33.3 Red Cell Distribution Width 13.4 Platelet Count 182 Mean Platelet Volume 10.7 H Immature Granulocytes % 0.300 Neutrophils % 71.2 Lymphocytes % 17.6 Monocytes % 8.3 Eosinophils % 1.7 Basophils % 0.9 Nucleated Red Blood Cells % 0.0 Immature Granulocytes # 0.020 Neutrophils # 4.1 Lymphocytes # 1.0 Monocytes # 0.5 Eosinophils # 0.1 Basophils # 0.1 Nucleated Red Blood Cells # 0.0 Sodium Level 135 Potassium Level 5.6 H Chloride Level 92 L Carbon Dioxide Level 29 Anion Gap 14 H Blood Urea Nitrogen 104 H Creatinine 10.02 H Est Glomerular Filtrat Rate mL/min Glucose Level 93 Calcium Level 8.5 Phosphorus Level 6.1 H Magnesium Level 2.1 Vitamin B12 Level 276 Folate 6.4 Free Thyroxine 1.79 Total Triiodothyronine 0.64 L Rapid Plasma Reagin NONREACTIVE Hepatitis B Surface Antigen NEGATIVE Hepatitis B Surface Antibody POSITIVE H Medications Medication Current Medications IV Flush (NS 3 ml) 3 ml PER PROTOCOL IV ; Start 01/12/19 at 01:00 Ondansetron HCl (Zofran Inj) 4 mg Q6H PRN IV NAUSEA/VOMITING; Start 01/12/19 at 01:00 Acetaminophen (Tylenol Tab) 650 mg Q6H PRN PO .PAIN 1-3 OR TEMP; Start 01/12/19 at 01:00 Acetaminophen/ Hydrocodone Bitart ([place] (5/325)) 1 tab Q6H PRN PO .PAIN 4-6; Start 01/12/19 at 01:00 Albuterol/ Ipratropium (Duoneb) 3 ml Q2H RESP THERAPY PRN HHN SHORTNESS OF BREATH; Start 01/12/19 at 01:00 Lamotrigine (Lamictal) 100 mg BID PO Last administered on 01/13/19 20:02; Admin Dose 100 MG; Start 01/12/19 at 09:00 Levetiracetam (Keppra) 500 mg DAILY PO Last administered on 01/13/19 12:03; Admin Dose 500 MG; Start 01/12/19 at 09:00 Meclizine HCl (Antivert) 25 mg TID PRN PO DIZZINESS; Start 01/12/19 at 01:00 Metoprolol Succinate (Toprol Xl) 100 mg DAILY PO Last administered on 01/13/19 12:04; Admin Dose 100 MG; Start 01/12/19 at 09:00 Nifedipine (Procardia Xl) 60 mg BID PO Last administered on 01/13/19 20:02; Admin Dose 60 MG; Start 01/12/19 at 09:00 Atorvastatin Calcium (Lipitor) 10 mg DAILY@21 PO Last administered on 01/13/19 20:02; Admin Dose 10 MG; Start 01/12/19 at 21:00 Pantoprazole (Protonix Tab) 40 mg DAILY@06 PO Last administered on 01/13/19 06:20; Admin Dose 40 MG; Start 01/12/19 at 06:00 Albumin Human 100 ml @ 100 mls/hr WITH DIALYSIS PRN IV SBP <90 DURING DIALYSIS; Start 01/12/19 at 19:30 Sodium Chloride (NS) -To prime the dialy... DIRECTED FOR HD PRN IV HD; Start 01/12/19 at 19:30 Hydralazine HCl (Apresoline) 100 mg TID PO ; Start 01/14/19 at 09:00 TYSHAWN BYRD MD January 13, 2019 23:18
[2019-01-14] VITALS (13 sets, daily range): BP systolic 142–186; BP diastolic 65–75; PULSE 61–78; RESP 18–20
[2019-01-14] MEDS: PANTOPRAZOLE (EC) 40 MG TAB PO SCH (05:49)
--- NOTE | 2019-01-14 08:21 | CONS ---
Assessment/Plan Assessment/Plan Assessment/Plan (Daily) 1. Altered mental status improving 2. ESRD on HD MWF 3. H/O HTN with accelerated HTN 4. H/o dyslipidemia 5. H/o seizure disorder 6. H/o CVA 7. Acute hyperkalemia Plan: Nifedipine XL 60mg PO BID, Hydralazine 100mg PO TID, IV hydralzine prn S/p HD yesterday 3 L removed, will plan for next HD on Thursday- K 4.8, other electrolytes stable pt regular HD schedule is MWF- After HD on Thursday pt will be back on his Regular schedule MWF will follow up Consultation Date/Type/Reason Admit Date/Time January 12, 2019 at 11:53 Initial Consult Date Type of Consult NEPHROLOGY Requesting Provider: TYSHAWN BYRD MD Date/Time of Note DATE: 01/14/19 TIME: 08:21 24 HR Interval Summary Free Text/Dictation pt mroe alert today, s/p HD yesterday, BP stable, afebrile, Exam/Review of Systems Exam Vitals Vital Signs Date Temp Pulse Resp B/P (MAP) Pulse Ox O2 O2 Flow FiO2 Time Delivery Rate 01/14/19 98.2 75 19 164/70 96 07:30 (101) 01/14/19 Nasal 04:00 Cannula 01/13/19 2.0 20:09 Intake and Output 01/13/19 01/13/19 01/14/19 1515:00 23:00 07:00 IntakeIntake Total 800 ml 100 ml OutputOutput Total 3600 ml 0 ml BalanceBalance -3600 ml 800 ml 100 ml Exam Constitutional: alert, awake, no acute distress Respiratory: congested cough, diminished breath sounds Cardiovascular: regular rate and rhythm, nl pulses Gastrointestinal: soft, non-tender Musculoskeletal: no clubbing/cyanosis/edema Neurological: non focal Results Result Diagram: 01/13/1970401/13/19704 Medications Medication Current Medications IV Flush (NS 3 ml) 3 ml PER PROTOCOL IV ; Start 01/12/19 at 01:00 Ondansetron HCl (Zofran Inj) 4 mg Q6H PRN IV NAUSEA/VOMITING; Start 01/12/19 at 01:00 Acetaminophen (Tylenol Tab) 650 mg Q6H PRN PO .PAIN 1-3 OR TEMP; Start 01/12/19 at 01:00 Acetaminophen/ Hydrocodone Bitart ([place] (5/325)) 1 tab Q6H PRN PO .PAIN 4-6; Start 01/12/19 at 01:00 Albuterol/ Ipratropium (Duoneb) 3 ml Q2H RESP THERAPY PRN HHN SHORTNESS OF BREATH; Start 01/12/19 at 01:00 Lamotrigine (Lamictal) 100 mg BID PO Last administered on 01/13/19 20:02; Admin Dose 100 MG; Start 01/12/19 at 09:00 Levetiracetam (Keppra) 500 mg DAILY PO Last administered on 01/13/19 12:03; Admin Dose 500 MG; Start 01/12/19 at 09:00 Meclizine HCl (Antivert) 25 mg TID PRN PO DIZZINESS; Start 01/12/19 at 01:00 Metoprolol Succinate (Toprol Xl) 100 mg DAILY PO Last administered on 01/13/19 12:04; Admin Dose 100 MG; Start 01/12/19 at 09:00 Nifedipine (Procardia Xl) 60 mg BID PO Last administered on 01/13/19 20:02; Admin Dose 60 MG; Start 01/12/19 at 09:00 Atorvastatin Calcium (Lipitor) 10 mg DAILY@21 PO Last administered on 01/13/19 20:02; Admin Dose 10 MG; Start 01/12/19 at 21:00 Pantoprazole (Protonix Tab) 40 mg DAILY@06 PO Last administered on 01/14/19 05:49; Admin Dose 40 MG; Start 01/12/19 at 06:00 Albumin Human 100 ml @ 100 mls/hr WITH DIALYSIS PRN IV SBP <90 DURING DIALYSIS; Start 01/12/19 at 19:30 Sodium Chloride (NS) -To prime the dialy... DIRECTED FOR HD PRN IV HD; Start 01/12/19 at 19:30 Hydralazine HCl (Apresoline) 100 mg TID PO ; Start 01/14/19 at 09:00 SOLE NIETO MD January 14, 2019 08:21
[2019-01-14] MEDS: LAMOTRIGINE 100 MG TAB PO SCH ×2 (09:01→21:16)
[2019-01-14] MEDS: LEVETIRACETAM 500 MG TAB PO SCH (09:01)
[2019-01-14] MEDS: METOPROLOL (XL) 100 MG TAB PO SCH (09:02)
[2019-01-14] MEDS: NIFEdipine (XL) 60 MG TAB PO SCH ×2 (09:03→21:15)
--- NOTE | 2019-01-14 10:45 | DS ---
Date/Time of Note Date/Time of Note DATE: 01/14/19 TIME: 10:34 Discharge Summary Admission/Discharge Info Admit Date/Time January 12, 2019 at 11:53 Discharge Date/Time Patient Condition: Stable Consults Gravely Procedures CXR: no acute process C SPINE CT IMPRESSION: CT cervical spine demonstrates no acute injury. Multilevel degenerative changes are present resulting in moderate central canal stenosis at the C3-4, and C4-5 levels. There is bilateral neural foraminal narrowing at each of these levels. At C5-6 there is mild central canal and bilateral neural foraminal narrowing. CT BRAIN IMPRESSION: CT of the brain demonstrates there is generalized volume loss however the ventricles are out of proportion relative to the sulci with mild crowding at the top and would clinically correlate for possible normal pressure hydrocephalus. There are microvascular changes with an old right frontal encephalomalacia as well as an old left jewell radiata and right kirk lacunar infarcts. MRI Brain IMPRESSION: 1. No acute infarction or intracranial hemorrhage. 2. Moderate central greater than peripheral cerebral volume loss. 3. Moderate to advanced chronic microvascular ischemic changes. 4. Chronic right parietal infarction. 5. Chronic left jewell radiata lacunar infarction. 6. Chronic central pontine lacunar infarction. 7. Small chronic left cerebellar infarction. 8. Nonspecific central intramedullary spinal cord T2 hyperintensity at the C2 level. Findings may related to demyelination versus other infectious/inflammatory etiologies. MRI of the cervical spine with and without contrast may be performed as clinically warranted. Further findings as detailed above. Hx of Present Illness 73y M w A[facility] Hospital Course Hospitalist Coverage/ hospital course Admitted with acute encephalopathy of unknown etiology. In the ER CAT scan concerning nph. seen by NS & no s/s of nph. other etiology were evaluated. seems to have no acute process. Likely delirium due to either fluid overload uremia, or subclinical hyperthyroidism etc. Patient stable for for discharge. Will arrange for outpatient follow-up with primary, and referral to neurology and endocrinology. No family at bedside. I left message with daughter Maggie. A/P 1. Acute encephalopathy ukn etiology stable, Ruled out symptomatic NPH. stable dc home 2. ESRD dialysis status 3. Anemia. 4. Old stroke by imaging 5. Chronic hypertension 6. Chronic dyslipidemia 7. Seizure disorder MR 8. Past tobacco 9. Cervical stenosis 10. Subclinical hyperthyroidism? S: 01/12oriented to month, Resseda. No inez headache. Gait dysfunction? uses a fww? 01/13: no events 01/14: no events O: vss PE no pallor/ droop reg s1s2 no mrg ctab bs+ ntnd no r r g no edema CN II XII grossly intact M 12/26 *4 Sensory/ Reflexes- Symmetrical Home Meds Active Scripts Hydrocodone/Acetaminophen ([place] 5-325 Tablet) 1 Each Tablet, 1 TAB PO Q6H PRN for PAIN, #15 TAB Prov:CHERRY TORRES DO 12/07/18 Reported Medications Meclizine Hcl* (Meclizine Hcl*) 25 Mg Tablet, 25 MG PO TID PRN for DIZZINESS for 30 Days 01/12/19 Omeprazole* (Omeprazole*) 20 Mg Capsule.dr, 20 MG PO DAILY, #30 CAP 12/07/18 Calcium Acetate* (Calcium Acetate*) 667 Mg Capsule, 667 MG PO WITH MEALS, #30 CAP 12/07/18 Levetiracetam* (Levetiracetam*) 500 Mg Tablet, 500 MG PO DAILY, TAB 12/07/18 Lamotrigine* (Lamotrigine*) 100 Mg Tablet, 100 MG PO BID, TAB 12/07/18 Metoprolol Succinate* (Toprol XL*) 100 Mg Tab.sr.24h, 100 MG PO DAILY, #30 TAB 12/07/18 Simvastatin* (Zocor*) 20 Mg Tablet, 20 MG PO QHS, #30 TAB 12/07/18 Nifedipine* (Afeditab CR*) 60 Mg Tablet.er, 60 MG PO BID, #30 TAB.SA 12/07/18 Hydralazine Hcl* (Hydralazine Hcl*) 100 Mg Tablet, 100 MG PO Q8 PRN for NEEDED, #90 TAB 12/07/18 Discontinued Scripts Cephalexin* (Keflex*) 500 Mg Capsule, 500 MG PO QID for 5 Days, CAP Prov:CHERRY TORRES DO 12/07/18 Primary Care Provider Not On Staff Doctor Time spent on discharge: > 30 minutes Pending Labs Laboratory Tests Test 01/14/19 08:32 Sodium Level 139 mmol/L (135-144) Potassium Level 4.8 mmol/L (3.5-5.1) Chloride Level 97 mmol/L (97-110) Carbon Dioxide Level 28 mmol/L (21-31) Anion Gap 14 (5-13) Blood Urea Nitrogen 61 mg/dl (7-20) Creatinine 7.34 mg/dl (0.61-1.24) Est Glomerular Filtrat Rate mL/min mL/min (>60) Glucose Level 101 mg/dl (70-220) Calcium Level 9.2 mg/dl (8.4-10.2) TYSHAWN BYRD MD January 14, 2019 10:44
--- NOTE | 2019-01-14 10:45 | PN ---
Date/Time of Note Date/Time of Note DATE: 01/14/19 TIME: 10:45 Assessment/Plan VTE Prophylaxis Risk score (from Nsg)>0 risk: 5 SCD applied (from Nsg): Yes SCD contraindicated: low risk/ambulating Pharmacological prophylaxis: LMWH Lines/Catheters IV Catheter Type (from Nrs): Saline Lock Assessment/Plan Hospital Course Hospitalist Coverage/ hospital course Admitted with acute encephalopathy of unknown etiology. In the ER CAT scan concerning nph. seen by NS & no s/s of nph. other etiology were evaluated. seems to have no acute process. Likely delirium due to either fluid overload uremia, or subclinical hyperthyroidism etc. Patient stable for for discharge. Will arrange for outpatient follow-up with primary, and referral to neurology and endocrinology. No family at bedside. I left message with daughter Maggie. A/P 1. Acute encephalopathy ukn etiology stable, Ruled out symptomatic NPH. stable dc home 2. ESRD dialysis status 3. Anemia. 4. Old stroke by imaging 5. Chronic hypertension 6. Chronic dyslipidemia 7. Seizure disorder MR 8. Past tobacco 9. Cervical stenosis 10. Subclinical hyperthyroidism? S: 01/12oriented to month, Resseda. No inez headache. Gait dysfunction? uses a fww? 01/13: no events 01/14: no events O: vss PE no pallor/ droop reg s1s2 no mrg ctab bs+ ntnd no r r g no edema CN II XII grossly intact M 12/26 *4 Sensory/ Reflexes- Symmetrical Result Diagram: 01/13/19 0705 01/14/19 0832 Results 24hrs Laboratory Tests Test 01/14/19 08:32 Sodium Level 139 Potassium Level 4.8 Chloride Level 97 Carbon Dioxide Level 28 Anion Gap 14 H Blood Urea Nitrogen 61 #H Creatinine 7.34 #H Est Glomerular Filtrat Rate mL/min Glucose Level 101 Calcium Level 9.2 Exam/Review of Systems Exam Vitals Vital Signs Date Temp Pulse Resp B/P (MAP) Pulse Ox O2 O2 Flow FiO2 Time Delivery Rate 01/14/19 75 09:14 01/14/19 Nasal 2.0 08:15 Cannula 01/14/19 98.2 19 164/70 96 07:30 (101) Intake and Output 01/13/19 01/13/19 01/14/19 1515:00 23:00 07:00 IntakeIntake Total 800 ml 100 ml OutputOutput Total 3600 ml 0 ml BalanceBalance -3600 ml 800 ml 100 ml Results Results 24hrs Laboratory Tests Test 01/14/19 08:32 Sodium Level 139 Potassium Level 4.8 Chloride Level 97 Carbon Dioxide Level 28 Anion Gap 14 H Blood Urea Nitrogen 61 #H Creatinine 7.34 #H Est Glomerular Filtrat Rate mL/min Glucose Level 101 Calcium Level 9.2 Medications Medication Current Medications IV Flush (NS 3 ml) 3 ml PER PROTOCOL IV ; Start 01/12/19 at 01:00 Ondansetron HCl (Zofran Inj) 4 mg Q6H PRN IV NAUSEA/VOMITING; Start 01/12/19 at 01:00 Acetaminophen (Tylenol Tab) 650 mg Q6H PRN PO .PAIN 1-3 OR TEMP; Start 01/12/19 at 01:00 Acetaminophen/ Hydrocodone Bitart ([place] (5/325)) 1 tab Q6H PRN PO .PAIN 4-6; Start 01/12/19 at 01:00 Albuterol/ Ipratropium (Duoneb) 3 ml Q2H RESP THERAPY PRN HHN SHORTNESS OF BREATH; Start 01/12/19 at 01:00 Lamotrigine (Lamictal) 100 mg BID PO Last administered on 01/14/19at 09:01; Admin Dose 100 MG; Start 01/12/19 at 09:00 Levetiracetam (Keppra) 500 mg DAILY PO Last administered on 01/14/19at 09:01; Admin Dose 500 MG; Start 01/12/19 at 09:00 Meclizine HCl (Antivert) 25 mg TID PRN PO DIZZINESS; Start 01/12/19 at 01:00 Metoprolol Succinate (Toprol Xl) 100 mg DAILY PO Last administered on 01/14/19 09:02; Admin Dose 100 MG; Start 01/12/19 at 09:00 Nifedipine (Procardia Xl) 60 mg BID PO Last administered on 01/14/19at 09:03; Admin Dose 60 MG; Start 01/12/19 at 09:00 Atorvastatin Calcium (Lipitor) 10 mg DAILY@21 PO Last administered on 01/13/19at 20:02; Admin Dose 10 MG; Start 01/12/19 at 21:00 Pantoprazole (Protonix Tab) 40 mg DAILY@06 PO Last administered on 01/14/19at 05:49; Admin Dose 40 MG; Start 01/12/19 at 06:00 Albumin Human 100 ml @ 100 mls/hr WITH DIALYSIS PRN IV SBP <90 DURING DIALYSIS; Start 01/12/19 at 19:30 Sodium Chloride (NS) -To prime the dialy... DIRECTED FOR HD PRN IV HD; Start 01/12/19 at 19:30 Hydralazine HCl (Apresoline) 100 mg TID PO Last administered on 01/14/19at 09:08; Admin Dose 100 MG; Start 01/14/19 at 09:00 TYSHAWN BYRD MD January 14, 2019 10:45
--- NOTE | 2019-01-14 11:27 | PDOCDIS ---
Discharge Instructions CONDITION [id number] Patient Condition: [id number] Stable HOME CARE INSTRUCTIONS: [id number] Diet Instructions: [id number] Regular ACTIVITY: [id number] Activity Restrictions: [id number] Slowly Increase Activity Do not Drive FOLLOW UP/APPOINTMENTS Follow-up Plan appt PCP & Neurology 1wk Dialysis as before Rheumatology referral placed TYSHAWN BYRD MD January 14, 2019 11:27
[2019-01-14] MEDS ORDERED: ACET325T33 PO (11:28)
[2019-01-14] MEDS ORDERED: HYDR-3672 PO (11:28)
[2019-01-14] MEDS: CALCIUM ACETATE 667 MG CAP PO SCH ×2 (12:29→17:58)
[2019-01-14] MEDS: ATORVASTATIN 10 MG TAB PO SCH (21:16)
[2019-01-14] MEDS ORDERED: ACETAMINOPHEN 325 MG TAB PO PRN (22:00)
[2019-01-14] MEDS ORDERED: HYDROCODONE/APAP (5/325) TAB PO PRN (22:00)
[2019-01-15] VITALS (21 sets, daily range): BP systolic 140–198; BP diastolic 62–82; PULSE 73–85; RESP 18–20
[2019-01-15] MEDS: PANTOPRAZOLE (EC) 40 MG TAB PO SCH (05:31)
[2019-01-15] MEDS: NIFEdipine (XL) 60 MG TAB PO SCH ×3 (08:05→20:48)
[2019-01-15] MEDS: METOPROLOL (XL) 100 MG TAB PO SCH ×2 (08:06→15:12)
[2019-01-15] MEDS: CALCIUM ACETATE 667 MG CAP PO SCH ×3 (08:16→17:19)
[2019-01-15] MEDS: LEVETIRACETAM 500 MG TAB PO SCH (08:16)
[2019-01-15] MEDS: LAMOTRIGINE 100 MG TAB PO SCH ×2 (08:16→20:49)
[2019-01-15] MEDS: ENOXAPARIN 30 MG/0.3 ML SYG SC SCH (08:22)
--- NOTE | 2019-01-15 10:01 | CONS ---
Assessment/Plan Assessment/Plan Assessment/Plan (Daily) 1. Altered mental status improving 2. ESRD on HD MWF 3. H/O HTN with accelerated HTN 4. H/o dyslipidemia 5. H/o seizure disorder 6. H/o CVA 7. Acute hyperkalemia Plan: Nifedipine XL 60mg PO BID, Hydralazine 100mg PO TID, IV hydralzine prn S/p HD today 2.6 L removed pt regular HD schedule is MW- next Hd will be on Thursday if pt stays here will follow up Consultation Date/Type/Reason Admit Date/Time January 12, 2019 at 11:53 Initial Consult Date Type of Consult NEPHROLOGY Requesting Provider: TYSHAWN BYRD MD Date/Time of Note DATE: 01/15/19 TIME: 10:01 Exam/Review of Systems Exam Vitals Vital Signs Date Temp Pulse Resp B/P (MAP) Pulse Ox O2 O2 Flow FiO2 Time Delivery Rate 01/15/19 98.6 76 18 140/72 96 08:00 (94) 01/14/19 Nasal 2.0 23:30 Cannula Intake and Output 01/14/19 01/14/19 01/15/19 1515:00 23:00 07:00 IntakeIntake Total 600 ml 250 ml BalanceBalance 600 ml 250 ml Results Result Diagram: 01/13/19 0705 01/14/19 0832 Medications Medication Current Medications IV Flush (NS 3 ml) 3 ml PER PROTOCOL IV ; Start 01/12/19 at 01:00 Ondansetron HCl (Zofran Inj) 4 mg Q6H PRN IV NAUSEA/VOMITING; Start 01/12/19 at 01:00 Acetaminophen/ Hydrocodone Bitart ([place] (5/325)) 1 tab Q6H PRN PO .PAIN 4-6; Start 01/12/19 at 01:00 Albuterol/ Ipratropium (Duoneb) 3 ml Q2H RESP THERAPY PRN HHN SHORTNESS OF BREATH; Start 01/12/19 at 01:00 Lamotrigine (Lamictal) 100 mg BID PO Last administered on 01/15/19at 08:16; Admin Dose 100 MG; Start 01/12/19 at 09:00 Levetiracetam (Keppra) 500 mg DAILY PO Last administered on 01/15/19at 08:16; Admin Dose 500 MG; Start 01/12/19 at 09:00 Meclizine HCl (Antivert) 25 mg TID PRN PO DIZZINESS; Start 01/12/19 at 01:00 Metoprolol Succinate (Toprol Xl) 100 mg DAILY PO Last administered on 01/14/19 09:02; Admin Dose 100 MG; Start 01/12/19 at 09:00 Nifedipine (Procardia Xl) 60 mg BID PO Last administered on 01/14/19 21:15; Admin Dose 60 MG; Start 01/12/19 at 09:00 Atorvastatin Calcium (Lipitor) 10 mg DAILY@21 PO Last administered on 01/14/19 21:16; Admin Dose 10 MG; Start 01/12/19 at 21:00 Pantoprazole (Protonix Tab) 40 mg DAILY@06 PO Last administered on 01/15/19 05:31; Admin Dose 40 MG; Start 01/12/19 at 06:00 Albumin Human 100 ml @ 100 mls/hr WITH DIALYSIS PRN IV SBP <90 DURING DIALYSIS; Start 01/12/19 at 19:30 Sodium Chloride (NS) -To prime the dialy... DIRECTED FOR HD PRN IV HD; Start 01/12/19 at 19:30 Hydralazine HCl (Apresoline) 100 mg TID PO Last administered on 01/14/19 19:34; Admin Dose 100 MG; Start 01/14/19 at 09:00 Enoxaparin Sodium (Lovenox) 30 mg DAILY SC ; Start 01/15/19 at 09:00 Calcium Acetate (Phoslo) 667 mg WITH MEALS PO Last administered on 01/15/19 08:16; Admin Dose 667 MG; Start 01/14/19 at 11:50 Acetaminophen (Tylenol Tab) 650 mg Q6H PRN PO .PAIN 1-3 OR TEMP; Start 01/14/19 at 22:00 Hydralazine HCl (Apresoline) 100 mg TID PO ; Start 01/15/19 at 09:00 Acetaminophen/ Hydrocodone Bitart ([place] (5/325)) 1 tab Q6H PRN PO PAIN; Start 01/14/19 at 22:00 SOLE NIETO MD January 15, 2019 10:01
[2019-01-15] MEDS ORDERED: hydrALAzine 20 MG INJ IV ONE (16:00)
--- NOTE | 2019-01-15 16:18 | PN ---
Date/Time of Note Date/Time of Note DATE: 01/15/19 TIME: 16:17 Assessment/Plan VTE Prophylaxis Risk score (from Nsg)>0 risk: 5 SCD applied (from Nsg): Yes SCD contraindicated: low risk/ambulating Pharmacological prophylaxis: LMWH Lines/Catheters IV Catheter Type (from Nrs): Saline Lock Assessment/Plan Hospital Course Hospitalist Coverage/ hospital course Admitted with acute encephalopathy of unknown etiology. In the ER CAT scan concerning nph. seen by NS & no s/s of nph. other etiology were evaluated. seems to have no acute process. Likely delirium due to either fluid overload uremia, or subclinical hyperthyroidism etc. Patient stable for for discharge. Will arrange for outpatient follow-up with primary, and referral to neurology and endocrinology. No family at bedside. I left message with daughter Maggie. A/P 1. Acute encephalopathy ukn etiology stable, Ruled out symptomatic NPH. htn assoc? ct /mri ok. stable dc home 2. ESRD dialysis status 3. Anemia. 4. Old stroke by imaging outpatient follow-up/referral to neurology and 5. Chronic hypertension stable adjust therapy 6. Chronic dyslipidemia 7. Seizure disorder MR 8. Past tobacco 9. Cervical stenosis 10. Subclinical hyperthyroidism? Role to endocrinology placed S: 01/12oriented to month, Resseda. No inez headache. Gait dysfunction? uses a fww? 01/13: no events 01/14: no events 01/15: Tolerating dialysis. Elevated blood pressure this afternoon. O: vss PE no pallor/ droop reg s1s2 no mrg ctab bs+ ntnd no r r g no edema CN II XII grossly intact M 12/26 *4 Sensory/ Reflexes- Symmetrical Result Diagram: 01/15/19 1057 01/15/19 1056 Results 24hrs Laboratory Tests Test 01/15/19 10:56 01/15/19 10:57 Prothrombin Time 13.0 Prothrombin Time Ratio 1.0 INR International Normalized Ratio 0.97 Activated Partial Thromboplast Time 31.2 Sodium Level 135 Potassium Level 5.7 H Chloride Level 96 L Carbon Dioxide Level 24 Anion Gap 15 H Blood Urea Nitrogen 83 H Creatinine 8.96 H Est Glomerular Filtrat Rate mL/min Glucose Level 99 Calcium Level 9.1 Magnesium Level 2.1 Total Bilirubin 0.1 L Direct Bilirubin 0.00 Indirect Bilirubin 0.1 Aspartate Amino Transf (AST/SGOT) 29 Alanine Aminotransferase (ALT/SGPT) 21 Alkaline Phosphatase 230 H Total Protein 7.0 Albumin 3.7 Globulin 3.30 H Albumin/Globulin Ratio 1.12 White Blood Count 5.2 Red Blood Count 3.04 L Hemoglobin 9.7 L Hematocrit 28.8 L Mean Corpuscular Volume 94.7 Mean Corpuscular Hemoglobin 31.9 Mean Corpuscular Hemoglobin Concent 33.7 Red Cell Distribution Width 13.5 Platelet Count 208 Mean Platelet Volume 11.1 H Immature Granulocytes % 0.400 Neutrophils % 70.8 Lymphocytes % 18.7 Monocytes % 7.6 Eosinophils % 1.7 Basophils % 0.8 Nucleated Red Blood Cells % 0.0 Immature Granulocytes # 0.020 Neutrophils # 3.7 Lymphocytes # 1.0 Monocytes # 0.4 Eosinophils # 0.1 Basophils # 0.0 Nucleated Red Blood Cells # 0.0 Exam/Review of Systems Exam Vitals Vital Signs Date Temp Pulse Resp B/P (MAP) Pulse Ox O2 O2 Flow FiO2 Time Delivery Rate 01/15/19 98.0 85 18 198/79 97 15:20 (118) 01/15/19 Room Air 09:45 01/15/19 2.0 08:00 Intake and Output 01/14/19 01/14/19 01/15/19 1414:59 22:59 06:59 IntakeIntake Total 600 ml 250 ml BalanceBalance 600 ml 250 ml Results Results 24hrs Laboratory Tests Test 01/15/19 10:56 01/15/19 10:57 Prothrombin Time 13.0 Prothrombin Time Ratio 1.0 INR International Normalized Ratio 0.97 Activated Partial Thromboplast Time 31.2 Sodium Level 135 Potassium Level 5.7 H Chloride Level 96 L Carbon Dioxide Level 24 Anion Gap 15 H Blood Urea Nitrogen 83 H Creatinine 8.96 H Est Glomerular Filtrat Rate mL/min Glucose Level 99 Calcium Level 9.1 Magnesium Level 2.1 Total Bilirubin 0.1 L Direct Bilirubin 0.00 Indirect Bilirubin 0.1 Aspartate Amino Transf (AST/SGOT) 29 Alanine Aminotransferase (ALT/SGPT) 21 Alkaline Phosphatase 230 H Total Protein 7.0 Albumin 3.7 Globulin 3.30 H Albumin/Globulin Ratio 1.12 White Blood Count 5.2 Red Blood Count 3.04 L Hemoglobin 9.7 L Hematocrit 28.8 L Mean Corpuscular Volume 94.7 Mean Corpuscular Hemoglobin 31.9 Mean Corpuscular Hemoglobin Concent 33.7 Red Cell Distribution Width 13.5 Platelet Count 208 Mean Platelet Volume 11.1 H Immature Granulocytes % 0.400 Neutrophils % 70.8 Lymphocytes % 18.7 Monocytes % 7.6 Eosinophils % 1.7 Basophils % 0.8 Nucleated Red Blood Cells % 0.0 Immature Granulocytes # 0.020 Neutrophils # 3.7 Lymphocytes # 1.0 Monocytes # 0.4 Eosinophils # 0.1 Basophils # 0.0 Nucleated Red Blood Cells # 0.0 Medications Medication Current Medications IV Flush (NS 3 ml) 3 ml PER PROTOCOL IV ; Start 01/12/19 at 01:00 Ondansetron HCl (Zofran Inj) 4 mg Q6H PRN IV NAUSEA/VOMITING; Start 01/12/19 at 01:00 Acetaminophen/ Hydrocodone Bitart ([place] (5/325)) 1 tab Q6H PRN PO .PAIN 4-6; Start 01/12/19 at 01:00 Albuterol/ Ipratropium (Duoneb) 3 ml Q2H RESP THERAPY PRN HHN SHORTNESS OF BREATH; Start 01/12/19 at 01:00 Lamotrigine (Lamictal) 100 mg BID PO Last administered on 01/15/19 08:16; Admin Dose 100 MG; Start 01/12/19 at 09:00 Levetiracetam (Keppra) 500 mg DAILY PO Last administered on 01/15/19 08:16; Admin Dose 500 MG; Start 01/12/19 at 09:00 Meclizine HCl (Antivert) 25 mg TID PRN PO DIZZINESS; Start 01/12/19 at 01:00 Metoprolol Succinate (Toprol Xl) 100 mg DAILY PO Last administered on 01/15/19 15:12; Admin Dose 100 MG; Start 01/12/19 at 09:00 Nifedipine (Procardia Xl) 60 mg BID PO Last administered on 01/15/19 15:12; Admin Dose 60 MG; Start 01/12/19 at 09:00 Atorvastatin Calcium (Lipitor) 10 mg DAILY@21 PO Last administered on 01/14/19 21:16; Admin Dose 10 MG; Start 01/12/19 at 21:00 Pantoprazole (Protonix Tab) 40 mg DAILY@06 PO Last administered on 5/25/19at 05:31; Admin Dose 40 MG; Start 01/12/19 at 06:00 Albumin Human 100 ml @ 100 mls/hr WITH DIALYSIS PRN IV SBP <90 DURING DIALYSIS; Start 01/12/19 at 19:30 Sodium Chloride (NS) -To prime the dialy... DIRECTED FOR HD PRN IV HD; Start 01/12/19 at 19:30 Hydralazine HCl (Apresoline) 100 mg TID PO Last administered on 01/15/19at 15:12; Admin Dose 100 MG; Start 01/14/19 at 09:00 Enoxaparin Sodium (Lovenox) 30 mg DAILY SC ; Start 01/15/19 at 09:00 Calcium Acetate (Phoslo) 667 mg WITH MEALS PO Last administered on 01/15/19at 08:16; Admin Dose 667 MG; Start 01/14/19 at 11:50 Acetaminophen (Tylenol Tab) 650 mg Q6H PRN PO .PAIN 1-3 OR TEMP; Start 01/14/19 at 22:00 Hydralazine HCl (Apresoline) 100 mg TID PO ; Start 01/15/19 at 09:00 Acetaminophen/ Hydrocodone Bitart ([place] (5/325)) 1 tab Q6H PRN PO PAIN; Start 01/14/19 at 22:00 Hydralazine HCl (Apresoline) 10 mg ONCE PRN IV If SBP>170; Start 01/15/19 at 17:00; Stop 01/15/19 at 19:00 TYSHAWN BYRD MD January 15, 2019 16:18
[2019-01-15] MEDS ORDERED: hydrALAzine 20 MG INJ IV PRN ×2 (17:00→19:30)
[2019-01-15] MEDS: ATORVASTATIN 10 MG TAB PO SCH (20:48)
[2019-01-16 02:00] VITALS: BP 152/66; PULSE 74; RESP 18
[2019-01-16] MEDS: PANTOPRAZOLE (EC) 40 MG TAB PO SCH (05:48)
[2019-01-16] MEDS: CALCIUM ACETATE 667 MG CAP PO SCH ×2 (08:18→12:03)
[2019-01-16] MEDS: LEVETIRACETAM 500 MG TAB PO SCH (08:37)
[2019-01-16] MEDS: LAMOTRIGINE 100 MG TAB PO SCH (08:37)
[2019-01-16] MEDS: NIFEdipine (XL) 60 MG TAB PO SCH (08:37)
[2019-01-16] MEDS: METOPROLOL (XL) 100 MG TAB PO SCH (08:38)
[2019-01-16] MEDS: ENOXAPARIN 30 MG/0.3 ML SYG SC SCH (08:39)
[2019-01-16 08:55] VITALS: BP 139/62; PULSE 77; RESP 17
[2019-01-16] MEDS ORDERED: ACET325T33 PO (10:14)
[2019-01-16] MEDS ORDERED: LOSA50TA2 PO (10:14)
--- NOTE | 2019-01-16 11:08 | DS ---
Date/Time of Note Date/Time of Note DATE: 01/16/19 TIME: 11:07 Discharge Summary Admission/Discharge Info Admit Date/Time January 12, 2019 at 11:53 Discharge Date/Time Patient Condition: Stable Consults Gravely Hx of Present Illness 73y M w [facility] Hospital Course CXR: no acute process C SPINE CT IMPRESSION: CT cervical spine demonstrates no acute injury. Multilevel degenerative changes are present resulting in moderate central canal stenosis at the C3-4, and C4-5 levels. There is bilateral neural foraminal narrowing at each of these levels. At C5-6 there is mild central canal and bilateral neural foraminal narrowing. CT BRAIN IMPRESSION: CT of the brain demonstrates there is generalized volume loss however the ventricles are out of proportion relative to the sulci with mild crowding at the top and would clinically correlate for possible normal pressure hydrocephalus. There are microvascular changes with an old right frontal encephalomalacia as well as an old left jewell radiata and right kirk lacunar infarcts. MRI Brain IMPRESSION: 1. No acute infarction or intracranial hemorrhage. 2. Moderate central greater than peripheral cerebral volume loss. 3. Moderate to advanced chronic microvascular ischemic changes. 4. Chronic right parietal infarction. 5. Chronic left jewell radiata lacunar infarction. 6. Chronic central pontine lacunar infarction. 7. Small chronic left cerebellar infarction. 8. Nonspecific central intramedullary spinal cord T2 hyperintensity at the C2 level. Findings may related to demyelination versus other infectious/inflammatory etiologies. MRI of the cervical spine with and without contrast may be performed as clinically warranted. Further findings as detailed above. Hx of Present Illness 73y M w [facility] Hospital Course Hospitalist Coverage/ hospital course Admitted with acute encephalopathy of unknown etiology. In the ER CAT scan concerning nph. seen by NS & no s/s of nph. other etiology were evaluated. seems to have no acute process. Likely delirium due to either fluid overload uremia, or subclinical hyperthyroidism etc. Patient stable for for discharge. Will arrange for outpatient follow-up with primary, and referral to neurology and endocrinology. No family at bedside. I left message with daughter Maggie. -Disposition per case management. Awaiting on SNF eval. A/P 1. Acute encephalopathy ukn etiology stable, Ruled out symptomatic NPH. stable dc home 2. ESRD dialysis status 3. Anemia. 4. Old stroke by imaging 5. Chronic hypertension axillary hypertension/hypertensive encephalopathy? 6. Chronic dyslipidemia 7. Seizure disorder MR 8. Past tobacco 9. Cervical stenosis 10. Subclinical hyperthyroidism? S: 01/12oriented to month, Resseda. No inez headache. Gait dysfunction? uses a fww? 01/13: no events 01/14: no events / no events. Blood pressure elevated overnight. Cozaar started O: vss PE no pallor/ droop reg s1s2 no mrg ctab bs+ ntnd no r r g no edema CN II XII grossly intact M 12/26 *4 Sensory/ Reflexes- Symmetrical Home Meds Active Scripts Acetaminophen* (Tylenol*) 325 Mg Tablet, 650 MG PO Q6H PRN for .PAIN 1-3 OR TEMP for 7 Days, TAB Prov:TYSHAWN BYRD MD 01/16/19 Losartan Potassium* (Cozaar*) 50 Mg Tablet, 50 MG PO DAILY for 14 Days, #15 TAB Prov:TYSHAWN BYRD MD 01/16/19 Acetaminophen* (Tylenol*) 325 Mg Tablet, 650 MG PO Q6H PRN for .PAIN 1-3 OR TEMP for 1 Day, TAB Prov:TYSHAWN BYRD MD 01/14/19 Hydralazine Hcl* (Apresoline*) 50 Mg Tab, 100 MG PO TID for 10 Days, #30 TAB Prov:TYSHAWN BYRD MD 01/14/19 Hydrocodone/Acetaminophen ([place] 5-325 Tablet) 1 Each Tablet, 1 TAB PO Q6H PRN for PAIN, #15 TAB Prov:CHERRY TORRES DO 12/07/18 Reported Medications Meclizine Hcl* (Meclizine Hcl*) 25 Mg Tablet, 25 MG PO TID PRN for DIZZINESS for 30 Days 01/12/19 Omeprazole* (Omeprazole*) 20 Mg Capsule.dr, 20 MG PO DAILY, #30 CAP 12/07/18 Calcium Acetate* (Calcium Acetate*) 667 Mg Capsule, 667 MG PO WITH MEALS, #30 CAP 12/07/18 Levetiracetam* (Levetiracetam*) 500 Mg Tablet, 500 MG PO DAILY, TAB 12/07/18 Lamotrigine* (Lamotrigine*) 100 Mg Tablet, 100 MG PO BID, TAB 12/07/18 Metoprolol Succinate* (Toprol XL*) 100 Mg Tab.sr.24h, 100 MG PO DAILY, #30 TAB 12/07/18 Simvastatin* (Zocor*) 20 Mg Tablet, 20 MG PO QHS, #30 TAB 12/07/18 Nifedipine* (Afeditab CR*) 60 Mg Tablet.er, 60 MG PO BID, #30 TAB.SA 12/07/18 Discontinued Reported Medications Hydralazine Hcl* (Hydralazine Hcl*) 100 Mg Tablet, 100 MG PO Q8 PRN for NEEDED, #90 TAB 12/07/18 Discontinued Scripts Cephalexin* (Keflex*) 500 Mg Capsule, 500 MG PO QID for 5 Days, CAP Prov:CHERRY TORRES DO 12/07/18 Follow-up Plan appt PCP & Neurology 1wk Dialysis as before Rheumatology referral placed Primary Care Provider Not On Staff Doctor Time spent on discharge: > 30 minutes TYSHAWN BYRD MD January 16, 2019 11:08
[2019-01-16] MEDS ORDERED: LOSARTAN 50 MG TAB PO SCH (21:00)
--- NOTE | 2019-01-16 23:46 | CONS ---
Assessment/Plan Assessment/Plan Assessment/Plan (Daily) 1. Altered mental status improving 2. ESRD on HD MWF 3. H/O HTN with accelerated HTN 4. H/o dyslipidemia 5. H/o seizure disorder 6. H/o CVA 7. Acute hyperkalemia Plan: Nifedipine XL 60mg PO BID, Hydralazine 100mg PO TID, IV hydralzine prn S/p HD today 2.6 L removed pt regular HD schedule is MWF- next Hd will be on Thursday if pt stays here will follow up ok to d/c home today pt was seen early in AM Consultation Date/Type/Reason Admit Date/Time January 12, 2019 at 11:53 Initial Consult Date Type of Consult NEPHROLOGY Requesting Provider: TYSHAWN BYRD MD Date/Time of Note DATE: 01/16/19 TIME: 23:46 Exam/Review of Systems Exam Vitals Vital Signs Date Temp Pulse Resp B/P (MAP) Pulse Ox O2 O2 Flow FiO2 Time Delivery Rate 01/16/19 97.9 77 17 139/62 94 Room Air 08:55 (87) 01/15/19 2.0 08:00 Intake and Output 01/15/19 01/15/19 01/16/19 1414:59 22:59 06:59 IntakeIntake Total 490 ml 250 ml 210 ml OutputOutput Total 3400 ml BalanceBalance -2910 ml 250 ml 210 ml Results Result Diagram: 01/15/19 1057 01/15/19 1056 SOLE NIETO MD January 16, 2019 23:46
== END 2019-01-16 13:15 | disposition home health service (06) | DRG 70 ==
LOC: E/R 20:10 → TEL 23:04 → OBSVTOIN 01-12 11:53 → PP2 01-14 22:15
PROVIDERS: ADMIT Internal Medicine; ATTEND Internal Medicine
DX: G93.40 Encephalopathy, unspecified (principal); N18.6 End stage renal disease; I12.0 Hypertensive chronic kidney disease with stage 5 chronic kidney disease or end stage renal disease; J90 Pleural effusion, not elsewhere classified; Z99.2 Dependence on renal dialysis; D63.1 Anemia in chronic kidney disease; S09.90XA Unspecified injury of head, initial encounter; W19.XXXA Unspecified fall, initial encounter; E11.9 Type 2 diabetes mellitus without complications; Z91.81 History of falling; E05.80 Other thyrotoxicosis without thyrotoxic crisis or storm; M48.02 Spinal stenosis, cervical region; G93.89 Other specified disorders of brain; Z86.73 Personal history of transient ischemic attack (TIA), and cerebral infarction without residual deficits; E87.5 Hyperkalemia
CPT/HCPCS: 70450; 70551; 71045; 72125; 80048; 80053; 80061; 82607; 82746; 82962; 83036; 83605; 83735; 84100; 84439; 84443; 84480; 84484; 85025; 85610; 85730; 86592; 86706; 87340; 90935; 92610; 93005; 97116; 97162; 97530; G0378; J0360; J1650